=== PATIENT | male | born 1950 | race Caucasian/White ===

== ENCOUNTER 2018-01-03 12:20 | Observation (INO) | payer MEDICARE, SELFPAY ==
[2018-01-03] VITALS (49 sets, daily range): BP systolic 82–125; BP diastolic 52–72; PULSE 66–90; RESP 12–24; TEMP 36.8–38.2; O2SAT 94–99
[2018-01-03] MEDS: Aspirin 81 MG CHEW 324 MG CH (12:31)
[2018-01-03 12:46] LABS: Abs Immature Grans 0.02 k/cumm (0.0-0.09); Absolute Basophil Count 0.01 k/cumm (0.0-0.2); Absolute Lymphocyte Count 0.64 k/cumm (1.2-3.4); Absolute Monocyte Count 0.39 k/cumm (0.11-0.7); Absolute Neutrophil Count 5.73 k/cumm (1.2-6.7); Basophils % 0.1; HCT 51.5 % (40.0-50.0); HGB 17.6 g/dL (13.5-17.5); Immature Grans % 0.3; Lymphocytes % 9.4; Mean Corp. HGB Concentration 34.2 g/dL (32.0-36.0); Mean Corpuscular Hemoglobin 31.6 pg (27.0-33.0); Mean Corpuscular Volume 92.5 fL (80-95); Mean Platelet Volume 9.9 fL (8.0-11.0); Monocytes % 5.7; Neutrophils % 84.5; Platelet Count 280 x1000/uL (130-400); RBC 5.57 m/cumm (4.50-6.00); RBC Distribution Width 14.2 % (11.8-14.1); White Blood Cell Count 6.79 k/cumm (4.4-10.8)
[2018-01-03] MEDS: Normal Saline 1,000 ML 1000 ML IV (12:55)
[2018-01-03 13:03] LABS: PTT Activated 22.7 sec (21.0-31.4)
--- NOTE | 2018-01-03 13:04 | DI.RAD_ITS ---
SYMPTOM/DIAGNOSIS: SEVERE CHEST PAIN PORTABLE AP CHEST: Comparison is made with 02/11/14. Heart size and pulmonary vasculature are within normal limits. The lungs are clear. No effusions or pneumothoraces are identified. The bones are intact. IMPRESSION: No acute pulmonary process.
[2018-01-03 13:08] LABS: ALT 59 U/L (12-78); AST 24 U/L (15-37); Albumin 3.9 g/dL (3.4-5.0); Alkaline Phosphatase 58 U/L (46-116); Anion Gap 10.7 mmol/L (3-11); BUN 20 mg/dL (7-18); Bilirubin, Total 0.9 mg/dL (0.2-1.0); CO2 27.3 mmol/L (21.0-32.0); Calcium 9.4 mg/dL (8.5-10.1); Chloride 100 mmol/L (98-107); Glucose 107 mg/dL (70-100); Potassium 3.6 mmol/L (3.5-5.1); Sodium 138 mmol/L (136-145); Total Protein 7.8 g/dL (6.4-8.2)
[2018-01-03 13:09] LABS: Troponin I < 0.02 ng/mL (0.00-0.06)
[2018-01-03 13:20] LABS: D-Dimer 1010 ng/mlFEU (<500)
--- NOTE | 2018-01-03 14:12 | DI.CT_ITS ---
SYMPTOMS/DIAGNOSIS: SEVERE CHEST PRESSURE, 1000 D DIMER, NSTEMI VS PE CTA OF THE CHEST: CT angiography was performed with multi slice acquisition and multi planar and 3D reconstruction. CT scan of the chest was performed according to the pulmonary embolus protocol. There is no evidence of pulmonary embolus. The thoracic aorta is intact. No aneurysm or dissection is seen. The heart size is within normal limits. No significant pericardial effusion is seen. No findings to suggest right ventricular dysfunction are present. No significant mediastinal or hilar adenopathy is seen. No pleural effusion or pneumothorax is identified. Dependent atelectatic changes are seen in the lungs. No focal consolidating infiltrates are present. Mild central lobular emphysematous changes are seen in the lungs. Degenerative changes are seen in the spine. Prior vertebroplasty is seen. 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 IMPRESSION: No evidence of a pulmonary embolus, thoracic aortic dissection or aneurysm. The findings were discussed with the emergency department on the date of the examination.
[2018-01-03] MEDS: Omnipaque 350 MG/ML 100 ML BTL IJ (14:31)
--- NOTE | 2018-01-03 15:36 | W.ED.GENAD ---
Discharge Plan Disposition Patient Disposition: [facility] INPATIENT Condition: Stable Discharge Details Chief Complaint: Chest Pain Clinical Impression: Chest pain Reason For Visit: CHEST PAIN Admit Date/Time: 01/03/18 17:03 Admit Provider: Chepe Coello Attending Provider: Chepe Coello Primary Care Provider: Yash Hermosillo ED Provider: Dmitriy Maguire Discharge Data Discharge Date/Time-TO BE ENTERED AT DEPARTURE: 01/03/18 16:41 Medical Decision Making This is a pleasant 67-year-old male who presents for evaluation of chest pain. Patient states that 1 hour prior to arrival he was sitting watching TV when he developed sudden onset crushing-like chest pain around his chest. He recently got back from a long flight from [place] last night. The patient was given 3 aspirin by his , and then immediately brought to the ER for further evaluation. Cardiac risk factors are distant tobacco use, some family history of cardiac disease high cholesterol, past medical history is positive for osteopenia with Fosamax use. On arrival the patient was in moderate pain, with no radiation to his arm or neck. Initial EKG was performed and demonstrated no evidence of STEMI, however nitroglycerin was then given the patient had complete resolution of his symptomatology. Laboratory workup was performed and demonstrated relatively benign laboratory findings. No significant leukocytosis, left shift, bandemia, or electrolyte abnormality. Renal function is stable. Troponin was negative. D-dimer was ordered out of concern for PE with his recent flight and this was elevated at 1000. CT scan was performed and demonstrated IMPRESSION: No evidence of a pulmonary embolus, thoracic aortic dissection or aneurysm. X-ray showed no acute pathology or abnormality. With no evidence of STEMI on EKG, and a normal laboratory workup however a concerning history and an elevated heart score with a complete symptom resolution secondary to nitroglycerin administration I do feel this patient would benefit from serial troponins and inpatient admission for further cardiac evaluation. I discussed the case with the hospitalist, Dr. Coello he agreed with the assessment and plan. I have extensively reviewed the treatment plan with the patient. I have addressed all patient concerns at this time. I have also discussed the plan with the admitting physician and they agree with the current assessment and plan and have agreed to assume responsibility for the patient. All parties demonstrate verbal understanding and agreement with our assessment and plan at this time. EKG 12: 29 Rate 79, intervals normal, sinus rhythm, no significant ST elevations or depressions, questionable less than 1 mm elevation in V1. No reciprocal depressions. EKG 12: 37 Rate 57, intervals normal, sinus bradycardia, posterior EKG. No ST elevations or depressions in V4 V5 or V6. Questionable less than 1 mm elevation in V1 and V2. No reciprocal depressions.. No T wave inversions EKG 15: 36 rate 81, intervals normal, sinus rhythm, no ST elevations or depressions, no T wave inversions. No Q waves. HPI General Date/Time Provider Initiated Documentation: 01/03/18 12:30. HPI Narrative: This is a 67-year-old male with a past medical history of osteoporosis, osteopenia for which she takes Fosamax, questionable asthma, who is a former smoker, with a questionable history of high cholesterol and hypertension. He used to be on simvastatin but stopped secondary to myalgias. He presents today for evaluation of chest pain. The patient states that he was watching TV when he developed a crushing sternal chest pain that feels like a vice around his chest with no radiation down the arms or up the neck. He attempted to switch physicians, and took 3 aspirin at home but had no improvement relief of his symptoms. It occurred roughly 1 hour prior to his arrival. He came in immediately for evaluation. He has no previous cardiac history. He does admit to questionable family history of cardiac disease. He denies any cough, or arm pain. Patient does admit to a recent long flight coming back just yesterday evening. He denies any calf or leg pain or any history of blood clots. The patient denies any tearing sensation, or ripping sensation in his chest. He denies any trauma. No other complaints at this time. Previous surgical history is positive for polyps that were removed from the colon. He denies any IV or illicit drug use. Related Data Home Medications Medication Instructions Recorded Confirmed alendronate 70 mg tablet 70 mg PO QWEEK 12/05/17 01/03/18 cholecalciferol (vitamin D3) 1,000 1,000 unit PO BID cap 12/05/17 01/03/18 unit capsule famotidine-Ca carb-mag hydrox 10 1 tab PO BID 12/05/17 01/03/18 mg-800 mg-165 mg chewable tablet ibuprofen 200 mg capsule 200 mg PO DAILY PRN cap 12/05/17 01/03/18 multivitamin 1 tab PO DAILY 01/03/18 01/03/18 Allergies Allergy/AdvReac Type Severity Reaction Status Date / Time simvastatin AdvReac Unknown MYALGIAS Verified 01/03/18 16:50 General Stated Complaint: Chest Pain ANGIE: 2 Review of Systems Review of Systems All systems reviewed & are unremarkable except as noted in HPI and below PFSH Medical History Chest pain (Acute) Osteoporosis (Chronic 04/05/15) 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) Former smoker (Resolved 08/19/12) Compression fracture of body of thoracic vertebra (Acute 08/01/16) Social History household members: other details: 2 current occupational status: employed 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 pets and animals: Yes pets and animals: dog(s) frequency: 5-6 times per week duration: 30-45 minutes/day Smoking/Tobacco Use Status: Former Tobacco Use alcohol intake: current alcohol intake frequency: 3 or more drinks per day substance use type: does not use special carmelina needs: No Surgical History History of vertebroplasty (Acute) Hemorrhoidal Banding (~06/2009) Hernia repair (~07/2007) Exam Narrative Exam Narrative: 1.Const: Well-nourished, Well-developed, appearing stated age, appearing in acute distress, no severe diaphoresis 2.Eyes: PERRL, no conjunctival injection, and symmetrical lids. 3.ENT: Atraumatic external nose and ears. Moist MM. Neck: Symmetric, trachea midline, No thyromegaly. 4.CVS: +S1/S2, No murmurs or gallops. Peripheral pulses 2+ and equal in all extremities. Brisk capillary refill in all extremities. 5.RESP: Unlabored respiratory effort. Clear to auscultation bilaterally. No wheezes rales or rhonchi 6.GI: Soft, Nontender/Nondistended, No hepatosplenomegaly. No guarding or rebound. 7.MSK: Normocephalic/Atraumatic, Extremities w/o deformity or ttp No cyanosis or clubbing, Normal movement of all extremities 8.Skin: Warm, Dry. No rashes or lesions. 9.Neuro: circular knife cutter machine II-XII grossly intact. Sensation grossly intact, no focal neurologic deficits. 10.Psych: (AAO) x3. Appropriate mood and affect Course Vital Signs Pulse 70 01/03/18 12:45 Respiratory Rate 18 01/03/18 12:45 Blood Pressure 100/57 L 01/03/18 12:45 Pulse Oximetry 98 01/03/18 12:45 Pulse 70 01/03/18 12:45 Respiratory Rate 20 01/03/18 13:25 Respiratory Effort Labored 01/03/18 13:25 Respiratory Depth Normal 01/03/18 13:25 Respiratory Pattern Normal 01/03/18 13:25 Blood Pressure 100/57 L 01/03/18 12:45 Blood Pressure Position Sitting 01/03/18 12:45 Pulse Oximetry 98 01/03/18 12:45 Oxygen Delivery Method Room Air 01/03/18 12:45 Oxygen Flow Rate 0 01/03/18 12:45 Pain Level 8 01/03/18 13:25 Lab/Test Results Lab/Test Results: Laboratory Tests Range/Units 01/03/18 01/03/18 01/03/18 12:35 12:35 12:35 WBC (4.4-10.8) k/cumm 6.79 RBC (4.50-6.00) m/cumm 5.57 Hgb (13.5-17.5) g/dL 17.6 H Hct (40.0-50.0) % 51.5 H MCV (80-95) fL 92.5 MCH (27.0-33.0) pg 31.6 MCHC (32.0-36.0) g/dL 34.2 RDW (11.8-14.1) % 14.2 H Plt Count (130-400) x1000/uL 280 MPV (8.0-11.0) fL 9.9 Immature Gran % 0.3 Neutrophils % 84.5 Lymphocytes % 9.4 Monocytes % 5.7 Eosinophils % 0.0 Basophils % 0.1 Absolute Neutrophils (1.2-6.7) k/cumm 5.73 Absolute Lymphocytes (1.2-3.4) k/cumm 0.64 L Absolute Monocytes (0.11-0.7) k/cumm 0.39 Absolute Eosinophils (0.0-0.7) k/cumm 0.00 Absolute Basophils (0.0-0.2) k/cumm 0.01 PT (9.3-10.8) sec 10.0 INR (1.0-3.5) 1.0 APTT (21.0-31.4) sec 22.7 D-Dimer (<500) ng/mlFEU 1010 H Sodium (136-145) mmol/L 138 Potassium (3.5-5.1) mmol/L 3.6 Chloride (98-107) mmol/L 100 Carbon Dioxide (21.0-32.0) mmol/L 27.3 Anion Gap (3-11) mmol/L 10.7 BUN (7-18) mg/dL 20 H Creatinine (0.70-1.30) mg/dL 1.10 Estimated GFR/1.73 m2 (mL/min/1.73m2) >= 60.00 Glucose (70-100) mg/dL 107 H Calcium (8.5-10.1) mg/dL 9.4 Total Bilirubin (0.2-1.0) mg/dL 0.9 AST (15-37) U/L 24 ALT (12-78) U/L 59 Alkaline Phosphatase (46-116) U/L 58 Troponin I (0.00-0.06) ng/mL < 0.02 Total Protein (6.4-8.2) g/dL 7.8 Albumin (3.4-5.0) g/dL 3.9
[2018-01-03] MEDS: Pantoprazole 40 MG TABCR PO (16:09)
--- NOTE | 2018-01-03 16:39 | W.PM.HP.N ---
Date of service: 01/03/18 Time of Service: 16:41 Assessment and Plan (1) Chest pain: Current visit: Yes Status: Acute By his description of his chest pain it certainly sounds like it could be cardiac in origin. However, with his recent GI symptoms, a GI etiology/esophageal etiology is also possible. Limited risk factors for coronary artery disease including hyperlipidemia and past tobacco use, age and gender. Asymptomatic now after 1 sublingual nitroglycerin. From a diagnostic standpoint, monitor on telemetry, cycle troponins and follow for recurrent symptoms. From a therapeutic standpoint I am not starting any anticoagulation beyond prophylaxis for DVT, will hold off on further enema, as needed nitroglycerin to be available. If troponins rise, start anticoagulation, antiplatelet agents, beta-quinn at low dose given soft blood pressure and low resting heart rate. If all troponins flat, arrangements will be made for an outpatient stress test. (2) Osteoporosis: Current visit: Yes Status: Chronic Historically has not had any GI intolerance of alendronate. He takes Fosamax on Sundays, I have not reordered it yet. Likewise will have calcium on hold but will continue his vitamin D supplement. History of Present Illness Chief Complaint: Chest pain Narrative: 67-year-old former smoker (quit 4 years ago) here complaining of crushing bandlike chest pain around his chest, onset at rest midday today. Pain without associated shortness of breath diaphoresis lightheadedness or palpitations but did radiate up towards his jaw. Symptoms symptoms were present upon arrival in the emergency room, completely relieved after 1 sublingual nitroglycerin and have not recurred. 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 His initial troponin is below the level of detection. He recently flew from [place], [place]. On his return home, developed upper abdominal, lower chest bloating distention followed by explosive bouts of nonbloody non-mucousy loose stools. He arrived back in [place] around midnight, feeling fairly washed out but not having any chest pain. 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 He awoke twice during the night again having diarrhea bowel movements, no vomiting and did not have any chest pain at that time. When he got up this morning he had a small amount to eat, not much appetite. Was sitting quietly at home watching television with sudden onset of the crushing bandlike pain around his chest. He has never had symptoms like this in the past. He does moderate physical activity without unusual dyspnea or provoking any similar symptoms to those he has had in the past 2 days. There is no family history of first-degree relations but does have several second-degree relations who have had coronary artery disease in mid to late life. He had been treated with a statin in the past but developed adverse effects, possible GI upset? He has not had any recent lipids reassessed. He is being admitted now for further evaluation of his chest pain, to rule out acute coronary syndrome. Medications: Alendronate 70 mg every Saturday, cholecalciferol 1000 units twice daily, ibuprofen as needed, 2 Tums once daily (for calcium) Review of Systems Review of Systems No fevers or chills and no diaphoresis with episodes of chest pain. No dysphagia. No recurrent dyspepsia or abdominal pains. Regular bowel movements, non-melanotic. No cough or wheeze or dyspnea with usual activities. No dysuria or hematuria. Chronic mild right wrist pain. No ankle swelling. No claudication-like symptoms. No focal weakness. 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 pets and animals: Yes pets and animals: dog(s) frequency: 5-6 times per week duration: 30-45 minutes/day Smoking/Tobacco Use Status: Former Tobacco Use alcohol intake: current alcohol intake frequency: 3 or more drinks per day substance use type: does not use special carmelina needs: No Surgical History History of vertebroplasty (Acute) Hemorrhoidal Banding (~06/2009) Hernia repair (~07/2007) Meds Home Medications Medication Instructions Recorded Confirmed Type alendronate 70 mg tablet 70 mg PO QWEEK 12/05/17 01/03/18 History cholecalciferol (vitamin D3) 1,000 1,000 unit PO BID cap 12/05/17 01/03/18 History unit capsule famotidine-Ca carb-mag hydrox 10 1 tab PO BID 12/05/17 01/03/18 History mg-800 mg-165 mg chewable tablet ibuprofen 200 mg capsule 200 mg PO DAILY PRN cap 12/05/17 01/03/18 History multivitamin 1 tab PO DAILY 01/03/18 01/03/18 History Allergies Allergy/AdvReac Type Severity Reaction Status Date / Time simvastatin AdvReac Unknown MYALGIAS Verified 01/03/18 16:50 Exam Narrative Exam Narrative: Comfortable and in no distress at the present time. SaO2 on room air 95%. Blood pressure 101/55 pulse 66 regular respiratory rate 16 weight 74.8 kg. No facial asymmetry. Pupils equal and reactive, extraocular movements normal. Pharynx clear. No JVD or carotid bruits. Lungs with a few scattered crackles in the lower lung rolon, no rub no wheeze. Regular heart rhythm no murmur S3 or S4. Abdomen is not distended, soft, active bowel sounds. Mild discomfort to palpation in the right upper quadrant that does not reproduce his symptoms. No rebound. No guarding. Lower extremities with no calf edema or tenderness. Good pulses distally. Normal DTRs throughout. Sits up unassisted. Symmetric movement of all extremities. Oriented x4. CT angiography negative for PE or any intrathoracic pathology. EKG with chronic left anterior fascicular block, nonspecific lateral T wave changes. Results Labs : 01/03/18 12:35 01/03/18 12:35 Laboratory Results - last 24 hr 01/03/18 01/03/18 01/03/18 12:35 12:35 12:35 WBC 6.79 RBC 5.57 Hgb 17.6 H Hct 51.5 H MCV 92.5 MCH 31.6 MCHC 34.2 RDW 14.2 H Plt Count 280 MPV 9.9 Immature Gran % 0.3 Neutrophils % 84.5 Lymphocytes % 9.4 Monocytes % 5.7 Eosinophils % 0.0 Basophils % 0.1 Absolute Neutrophils 5.73 Absolute Lymphocytes 0.64 L Absolute Monocytes 0.39 Absolute Eosinophils 0.00 Absolute Basophils 0.01 PT 10.0 INR 1.0 APTT 22.7 D-Dimer 1010 H Sodium 138 Potassium 3.6 Chloride 100 Carbon Dioxide 27.3 Anion Gap 10.7 BUN 20 H Creatinine 1.10 Estimated GFR/1.73 m2 >= 60.00 Glucose 107 H Calcium 9.4 Total Bilirubin 0.9 AST 24 ALT 59 Alkaline Phosphatase 58 Troponin I < 0.02 Total Protein 7.8 Albumin 3.9
--- NOTE | 2018-01-03 16:45 | HPE_ITS ---
Date of service: 01/03/18 Time of Service: 16:41 Assessment and Plan (1) Chest pain: Current visit: Yes Status: Acute By his description of his chest pain it certainly sounds like it could be cardiac in origin. However, with his recent GI symptoms, a GI etiology/ esophageal etiology is also possible. Limited risk factors for coronary artery disease including hyperlipidemia and past tobacco use, age and gender. Asymptomatic now after 1 sublingual nitroglycerin. From a diagnostic standpoint , monitor on telemetry, cycle troponins and follow for recurrent symptoms. From a therapeutic standpoint I am not starting any anticoagulation beyond prophylaxis for DVT, will hold off on further enema, as needed nitroglycerin to be available. If troponins rise, start anticoagulation, antiplatelet agents, beta-quinn at low dose given soft blood pressure and low resting heart rate. If all troponins flat, arrangements will be made for an outpatient stress test. (2) Osteoporosis: Current visit: Yes Status: Chronic Historically has not had any GI intolerance of alendronate. He takes Fosamax on Sundays, I have not reordered it yet. Likewise will have calcium on hold but will continue his vitamin D supplement. History of Present Illness Chief Complaint: Chest pain Narrative: 67-year-old former smoker (quit 4 years ago) here complaining of crushing bandlike chest pain around his chest, onset at rest midday today. Pain without associated shortness of breath diaphoresis lightheadedness or palpitations but did radiate up towards his jaw. Symptoms symptoms were present upon arrival in the emergency room, completely relieved after 1 sublingual nitroglycerin and have not recurred. 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 His initial troponin is below the level of detection. He recently flew from [place], [place]. On his return home, developed upper abdominal, lower chest bloating distention followed by explosive bouts of nonbloody non-mucousy loose stools. He arrived back in [place] around midnight, feeling fairly washed out but not having any chest pain. 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 He awoke twice during the night again having diarrhea bowel movements, no vomiting and did not have any chest pain at that time. When he got up this morning he had a small amount to eat, not much appetite. Was sitting quietly at home watching television with sudden onset of the crushing bandlike pain around his chest. He has never had symptoms like this in the past. He does moderate physical activity without unusual dyspnea or provoking any similar symptoms to those he has had in the past 2 days. There is no family history of first-degree relations but does have several second-degree relations who have had coronary artery disease in mid to late life. He had been treated with a statin in the past but developed adverse effects, possible GI upset? He has not had any recent lipids reassessed. He is being admitted now for further evaluation of his chest pain, to rule out acute coronary syndrome. Medications: Alendronate 70 mg every Saturday, cholecalciferol 1000 units twice daily, ibuprofen as needed, 2 Tums once daily (for calcium) Review of Systems Review of Systems No fevers or chills and no diaphoresis with episodes of chest pain. No dysphagia. No recurrent dyspepsia or abdominal pains. Regular bowel movements , non-melanotic. No cough or wheeze or dyspnea with usual activities. No dysuria or hematuria. Chronic mild right wrist pain. No ankle swelling. No claudication-like symptoms. No focal weakness. 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 pets and animals: Yes pets and animals: dog(s) frequency: 5-6 times per week duration: 30-45 minutes/day Smoking/Tobacco Use Status: Former Tobacco Use alcohol intake: current alcohol intake frequency: 3 or more drinks per day substance use type: does not use special carmelina needs: No Surgical History History of vertebroplasty (Acute) Hemorrhoidal Banding (~06/2009) Hernia repair (~07/2007) Meds Home Medications Medication Instructions Recorded Confirmed Type alendronate 70 mg tablet 70 mg PO QWEEK 12/05/17 01/03/18 History cholecalciferol (vitamin D3) 1,000 1,000 unit PO BID cap 12/05/17 01/03/18 History unit capsule famotidine-Ca carb-mag hydrox 10 1 tab PO BID 12/05/17 01/03/18 History mg-800 mg-165 mg chewable tablet ibuprofen 200 mg capsule 200 mg PO DAILY PRN cap 12/05/17 01/03/18 History multivitamin 1 tab PO DAILY 01/03/18 01/03/18 History Allergies Allergy/AdvReac Type Severity Reaction Status Date / Time simvastatin AdvReac Unknown MYALGIAS Verified 01/03/18 16:50 Exam Narrative Exam Narrative: Comfortable and in no distress at the present time. SaO2 on room air 95%. Blood pressure 101/55 pulse 66 regular respiratory rate 16 weight 74.8 kg. No facial asymmetry. Pupils equal and reactive, extraocular movements normal. Pharynx clear. No JVD or carotid bruits. Lungs with a few scattered crackles in the lower lung rolon, no rub no wheeze. Regular heart rhythm no murmur S3 or S4. Abdomen is not distended, soft, active bowel sounds. Mild discomfort to palpation in the right upper quadrant that does not reproduce his symptoms. No rebound. No guarding. Lower extremities with no calf edema or tenderness. Good pulses distally. Normal DTRs throughout. Sits up unassisted. Symmetric movement of all extremities. Oriented x4. CT angiography negative for PE or any intrathoracic pathology. EKG with chronic left anterior fascicular block, nonspecific lateral T wave changes. Results Labs : 01/03/18 12:35 01/03/18 12:35 Laboratory Results - last 24 hr 01/03/18 01/03/18 01/03/18 12:35 12:35 12:35 WBC 6.79 RBC 5.57 Hgb 17.6 H Hct 51.5 H MCV 92.5 MCH 31.6 MCHC 34.2 RDW 14.2 H Plt Count 280 MPV 9.9 Immature Gran % 0.3 Neutrophils % 84.5 Lymphocytes % 9.4 Monocytes % 5.7 Eosinophils % 0.0 Basophils % 0.1 Absolute Neutrophils 5.73 Absolute Lymphocytes 0.64 L Absolute Monocytes 0.39 Absolute Eosinophils 0.00 Absolute Basophils 0.01 PT 10.0 INR 1.0 APTT 22.7 D-Dimer 1010 H Sodium 138 Potassium 3.6 Chloride 100 Carbon Dioxide 27.3 Anion Gap 10.7 BUN 20 H Creatinine 1.10 Estimated GFR/1.73 m2 >= 60.00 Glucose 107 H Calcium 9.4 Total Bilirubin 0.9 AST 24 ALT 59 Alkaline Phosphatase 58 Troponin I < 0.02 Total Protein 7.8 Albumin 3.9
[2018-01-03 16:54] LABS: Troponin I < 0.02 ng/mL (0.00-0.06)
[2018-01-03] MEDS: Enoxaparin 40 MG/0.4 ML SYR SC (18:46)
[2018-01-03] MEDS: Acetaminophen 500 MG TAB 1000 MG PO (19:57)
[2018-01-03 21:04] LABS: Troponin I < 0.02 ng/mL (0.00-0.06)
[2018-01-04 03:25] VITALS: BP 118/73; PULSE 75; RESP 18; TEMP 37.1; O2SAT 97
[2018-01-04 07:14] VITALS: PULSE 78
[2018-01-04 07:30] VITALS: BP 127/80; PULSE 69; RESP 18; TEMP 37.2; O2SAT 97
[2018-01-04 07:31] LABS: Cholesterol 222 mg/dL (50-200); HDL Cholesterol 65 mg/dL (40-60); LDL CHOLESTEROL 133 mg/dL (<100); Triglyceride 168 mg/dL (30-150)
[2018-01-04 07:35] VITALS: O2SAT 96
[2018-01-04] MEDS: Normal Saline Flush 10 ML SYR IVP (09:01)
[2018-01-04 09:44] LABS: Abs Immature Grans 0.01 k/cumm (0.0-0.09); Absolute Basophil Count 0.02 k/cumm (0.0-0.2); Absolute Eosinophil Count 0.04 k/cumm (0.0-0.7); Absolute Lymphocyte Count 1.02 k/cumm (1.2-3.4); Absolute Monocyte Count 0.31 k/cumm (0.11-0.7); Absolute Neutrophil Count 2.52 k/cumm (1.2-6.7); Basophils % 0.5; HCT 44.4 % (40.0-50.0); HGB 15.1 g/dL (13.5-17.5); Immature Grans % 0.3; Mean Corpuscular Hemoglobin 31.7 pg (27.0-33.0); Mean Corpuscular Volume 93.3 fL (80-95); Mean Platelet Volume 10.6 fL (8.0-11.0); Monocytes % 7.9; Neutrophils % 64.3; Platelet Count 201 x1000/uL (130-400); RBC 4.76 m/cumm (4.50-6.00); RBC Distribution Width 13.9 % (11.8-14.1); White Blood Cell Count 3.92 k/cumm (4.4-10.8)
[2018-01-04 09:54] LABS: Anion Gap 9.4 mmol/L (3-11); BUN 17 mg/dL (7-18); CO2 23.6 mmol/L (21.0-32.0); CREATININE 0.84 mg/dL (0.70-1.30); Calcium 8.3 mg/dL (8.5-10.1); Chloride 104 mmol/L (98-107); Glucose 99 mg/dL (70-100); Magnesium 1.9 mg/dL (1.8-2.4); Potassium 3.6 mmol/L (3.5-5.1); Sodium 137 mmol/L (136-145)
--- NOTE | 2018-01-04 12:07 | PHARADMIT ---
Admission Pharmacy Clinical Review CHEST PAIN (may be epigastric) Code Status Full Code Current Weight Wgt- 74.8 kg Renally Cleared and Narrow Therapeutic Index Meds CrCl~79 mL/min Meds-OK QTc Value / Action Taken NA BP Control, Fever BP- 127/80 Tmax-37.2C Electrolytes reviewed Na- 137 K+3.6 MMag-1.9 DVT Prophylaxis Lovenoc 40mg Opiate Usage / Scheduled Bowel Regimen Ordered Yes Yes Plt/SCr for Heparin / Enoxaparin Plts-201 SCr-0.84 INR for Warfarin na H/H stable, WBC/Bands H&H- 15.1/44.4 WBC-3.92 Antibiotic appropriateness NONE Cultures and Sensitivities NONE Surgical ABX d/c within 24 hr na DM control / Insulin Dosing BG-99 Heart Failure (Check EF%) ([place]'s, B-Block, Diuretics) NTG IV to PO Switch No Home Meds Reviewed Yes Home Meds Not Ordered Famotidine-OTC, Ibuprofen,M-vites, Alendronate Comments Troponins-neg
--- NOTE | 2018-01-04 14:02 | DSE_ITS ---
Date of service: 01/04/18 Time of Service: 13:52 DS: Diagnosis Discharge Diagnosis (1) Non-cardiac chest pain: Status: Acute (2) Gastroenteritis: Status: Acute (3) Osteoporosis: Status: Chronic (4) Dehydration: Status: Acute Discharge Plan Disposition Patient Disposition: HOME Condition: Stable Discharge Details Chief Complaint: Chest Pain Clinical Impression: Chest pain Reason For Visit: CHEST PAIN Admit Date/Time: 01/03/18 17:03 Admit Provider: Chepe Coello Attending Provider: Chepe Coello Primary Care Provider: Yash Hermosillo ED Provider: Dmitriy Maguire Hospital Course Hospital Course: Patient was placed in observation status after presenting to the [facility] ED with crushing chest pain, which was preceded by bouts of diarrhea during travel and accompanied by nausea in the ED. His Cardiac workup at [facility] consisted of 3 sets of negative troponins as well as 2 negative EKGs and Normal sinus rhythm on telemetry. His symptoms appear to be self limited and have already significantly improved. He will require outpatient stress testing and is instructed to return to the hospital with any worsening of his current symptoms. Home Meds and New Rx's Prescriptions: New alum-mag hydroxide-simeth [Mag-Al Plus] 200-200-20 mg/5 mL Suspension 30 ml PO Q2H PRN PRNQty: 0 RF: 0 Continue cholecalciferol (vitamin D3) 1,000 unit capsule 1,000 unit PO BID RF: 0 famotidine-Ca carb-mag hydrox 10-800-165 mg tablet,chewable 1 tab PO BID RF: 0 multivitamin Tablet 1 tab PO DAILY RF: 0 ibuprofen 200 mg capsule 200 mg PO DAILY PRN (Reason: fever or pain) Qty: 0 RF: 0 alendronate 70 mg tablet 70 mg PO QWEEK Qty: 0 RF: 0 Discharge Instructions Instructions: Dehydration (DC), Acute Nausea and Vomiting (DC) Additional Instructions: Return to the hospital with any worsening of your current symptoms, return of chest pain, any dizziness or shortness of breath. You will need to follow up for outpatient stress testing. Drink plenty of water for the next few days! Do not take your alendronate this week - skip this week's dose as it can agravate gastric or esophageal irritation. Do not take ibuprofen for the next 3-5 days. Activity:: Activity as Tolerated Equipment/Supplies:: No Equipment Needed Diet:: As Tolerated Discharge Orders Discharge Orders: Discharge Order (Routine); Ordered 01/04/18 Ordered By: Diann Nunez Other Ambulatory Orders: Nuclear Medicine Stress Test (Outpt) (ONCE) (1) Timeframe: 1 Week Facility: [facility] - Location: STRESS LAB Ordered By: Diann Nunez Exam Narrative Exam Narrative: General: Very pleasant male, laying comfortably in bed Neurological: Intact Psychiatric: Appropriate speech pattern and content Skin: Intact HEENT: Extraocular movements are intact, dry mucous membranes, no goiter or JVD Cardiovascular: Regularly regular rhythm, no murmur, rubs, or gallop Lungs: Clear to auscultation below Gastrointestinal: Soft, tender to medium to deep palpation, mildly distended Extremities: No edema, clubbing, or cyanosis in bilateral lower extremities; 2+ pedal pulses bilaterally DS: Data Vitals/I&O Vitals and I&O: Vital Signs Temperature 37.2 C 01/04/18 07:30 Temperature Source Temporal Artery Scan 01/04/18 07:30 Pulse 69 01/04/18 07:30 Pulse Rhythm Regular 01/04/18 07:30 Pulse 74 01/03/18 16:31 Respiratory Rate 18 01/04/18 07:30 Respiratory Effort 01/04/18 07:30 Respiratory Depth Normal 01/04/18 07:30 Respiratory Pattern Normal 01/04/18 07:30 Blood Pressure 127/80 01/04/18 07:30 Blood Pressure Mean 79 01/03/18 16:31 Blood Pressure Position Sitting 01/03/18 12:45 Pulse Oximetry 96 01/04/18 07:35 Oxygen Delivery Method Room Air 01/04/18 07:35 Oxygen Flow Rate 0 01/04/18 07:35 Pain Level 2 01/04/18 03:25 Comment 01/04/18 03:25 Intake & Output 01/03/18 01/04/18 01/04/18 23:59 11:59 23:59 Intake Total 1450 / 1450 1200 / 1200 Balance 1450 / 1450 1200 / 1200 Weight 74.843 kg Intake: IV 1000 / 1000 20 / 20 Oral 450 / 450 1180 / 1180 Other: Urine Color Yellow Urine Appearance Clear Urine Odor Normal Comment pt up to the bathroom to void multiple times void x 1, unmeasured, reported by patient. Stool Size Small Stool Characteristics Soft Liquid Liquid Brown Brown Voiding Methods Toilet Toilet Completed studies during hospitalization [Text1]: CTA Chest: No evidence of a pulmonary embolus, thoracic aortic dissection or aneurysm. CXR: No acute pulmonary process. Labs on day of discharge: Labs from last 24 hours 01/04/18 01/04/18 01/04/18 06:40 06:40 06:40 WBC 3.92 L D RBC 4.76 Hgb 15.1 D Hct 44.4 MCV 93.3 MCH 31.7 MCHC 34.0 RDW 13.9 Plt Count 201 MPV 10.6 Immature Gran % 0.3 Neutrophils % 64.3 Lymphocytes % 26.0 Monocytes % 7.9 Eosinophils % 1.0 Basophils % 0.5 Absolute Neutrophils 2.52 Absolute Lymphocytes 1.02 L Absolute Monocytes 0.31 Absolute Eosinophils 0.04 Absolute Basophils 0.02 Sodium 137 Potassium 3.6 Chloride 104 Carbon Dioxide 23.6 Anion Gap 9.4 BUN 17 Creatinine 0.84 Estimated GFR/1.73 m2 >= 60.00 Glucose 99 Calcium 8.3 L Magnesium Cancelled 1.9 Troponin I Triglycerides Total Cholesterol LDL Cholesterol Direct HDL Cholesterol 01/04/18 01/03/18 01/03/18 06:40 20:33 16:30 WBC RBC Hgb Hct MCV MCH MCHC RDW Plt Count MPV Immature Gran % Neutrophils % Lymphocytes % Monocytes % Eosinophils % Basophils % Absolute Neutrophils Absolute Lymphocytes Absolute Monocytes Absolute Eosinophils Absolute Basophils Sodium Potassium Chloride Carbon Dioxide Anion Gap BUN Creatinine Estimated GFR/1.73 m2 Glucose Calcium Magnesium Troponin I < 0.02 < 0.02 Triglycerides 168 H Total Cholesterol 222 H LDL Cholesterol Direct 133 H HDL Cholesterol 65 H
[2018-01-04 16:13] VITALS: PULSE 86
--- NOTE | 2018-01-04 17:03 | PDOC.CMIN ---
Care Management Initial Assess REASON FOR HOSPITALIZATION:: Chest Pain PAST MEDICAL HISTORY/PAST SURGICAL HISTORY:: Medical: Chest Pain, Osteoporosis, compression FX. Surgical: Vertebroplasty, hemorrhoidal banding, Hernia repair PREVIOUS FUNCTIONAL STATUS/SOCIAL/FAMILY SUPPORTS:: Normally very independent. Lives with his , Marta, at their home in [place]. CURRENT FUNCTIONAL STATUS:: Lying in bed. , Marta, is at his bedsie visiting. States he is feeling much better and hopes to be able to go home. ADVANCE DIRECTIVES:: None on file Has patient been provided with information about the portal?: No Did the patient sign up for the portal?: No CODE STATUS:: Full Code INSURANCE COVERAGE / FINANCIAL ISSUES:: Medicare. AARP CURRENT HOME/COMMUNITY SERVICES/EQUIPMENT:: None PRIMARY CARE PHYSICIAN:: Luis Miguel Kraus - Anson Hermosillo MD POTENTIAL DISCHARGE NEEDS:: None PATIENT/FAMILY EDUCATION NEEDS:: Discharge instructions ANTICIPATED BARRIERS TO DISCHARGE:: None TRANSPORTATION:: Marta will transport by car PLAN:: Return home. No services needed, Marta to transport by car.
--- NOTE | 2018-01-04 17:14 | PDOC.CMDIS ---
LACE Index Scoring Tool - Questions: Length of Stay (in days): 1 Acuity (Admit via E.D.?): Yes E.D. Visits: 1 - Answers: Total Score: 5 Risk of Readmission: Low Risk Care Management Discharge Reason for Hospitalization: Chest Pain Discharge Plan: Home and no service needed.
== END 2018-01-04 16:17 | disposition home or self-care (01) ==
LOC: ER 13:36 → MS 17:13
PROVIDERS: Admitting Provider Internal Medicine; Emergency Provider Student in an Organized Health Care Education/Training Program; PCP Emergency Medicine; Visit Provider Internal Medicine
DX: R07.89 Other chest pain (principal); K52.9 Noninfective gastroenteritis and colitis, unspecified; E86.0 Dehydration; Z87.891 Personal history of nicotine dependence
CPT/HCPCS: 36415; 71275; 80048; 80053; 80061; 83721; 93005; 96361; 96374; 99217; 99219; 99285; J1650; 71045; 83735; 84484; 85025; 85379; 85610; 85730; 87324; 93010; G0378; J3490

== ENCOUNTER 2018-01-07 10:13 | Outpatient (CLI) | payer MEDICARE, SELFPAY ==
[2018-01-07 11:42] LABS: ALT 71 U/L (12-78); AST 45 U/L (15-37); Albumin 3.7 g/dL (3.4-5.0); Alkaline Phosphatase 76 U/L (46-116); Bilirubin, Direct 0.14 mg/dL (0.00-0.20); Bilirubin, Total 0.6 mg/dL (0.2-1.0); C-Reactive Protein 0.26 mg/dL (0.0-0.3)
[2018-01-09 16:50] LABS: Anaplasma phagocytophilum Negative (Negative); Ehrlichia chaffeensis Negative (Negative); Ehrlichia ewingii/canis Negative (Negative); Ehrlichia muris eauclairensis Negative (Negative)
== END 2018-01-07 10:33 ==
PROVIDERS: PCP Emergency Medicine; Visit Provider Emergency Medicine
DX: M79.10 Myalgia, unspecified site (principal)
CPT/HCPCS: 36415; 80076; 86140; 87798

== ENCOUNTER 2018-01-11 07:30 | Outpatient (REF) | payer MEDICARE, SELFPAY ==
[2018-01-14 10:56] LABS: Campylobacter PCR SEE COMMENTS; Salmonella PCR SEE COMMENTS; Shiga Toxin PCR SEE COMMENTS; Shigella/Enteroinvasive Ecoli SEE COMMENTS
== END 2018-01-11 07:50 ==
LOC: LBN 07:30
PROVIDERS: PCP Emergency Medicine; Visit Provider Emergency Medicine
DX: K52.9 Noninfective gastroenteritis and colitis, unspecified (principal)
CPT/HCPCS: 87329; 87505; 87324

== ENCOUNTER 2020-12-02 03:04 | Outpatient (CLI) | payer MEDICARE, SELFPAY ==
[2020-12-02 08:58] LABS: Calcium 8.9 mg/dL (8.5-10.1)
[2020-12-02 17:58] LABS: PSA, Screening 1.7 ng/mL (0.0-4.5)
[2020-12-06 07:48] LABS: Testosterone, Total 734 ng/dL (240-950)
[2020-12-08 14:56] LABS: PTH-Related Peptide 0.5 pmol/L (< or = 4.2)
[2020-12-08 16:36] LABS: 1,25-Dihydroxyvitamin D 25 pg/mL (18-64)
== END 2020-12-02 03:05 | disposition home or self-care (01) ==
LOC: LBO 03:04
PROVIDERS: PCP Emergency Medicine; Visit Provider Emergency Medicine
DX: M81.0 Age-related osteoporosis without current pathological fracture (principal); N40.0 Benign prostatic hyperplasia without lower urinary tract symptoms; Z12.5 Encounter for screening for malignant neoplasm of prostate
CPT/HCPCS: 36415; 84153; 84403; 82310; 82397; 82652

== ENCOUNTER 2020-12-15 02:48 | Outpatient (CLI) | payer MEDICARE, SELFPAY ==
[2020-12-15 12:57] LABS: Calculated LDL 227 mg/dL (<100); Cholesterol 333 mg/dL (<200); HDL Cholesterol 67 mg/dL (40-60); Triglyceride 199 mg/dL (<150)
== END 2020-12-15 02:49 | disposition home or self-care (01) ==
LOC: LOS 02:48
PROVIDERS: PCP Emergency Medicine; Visit Provider Emergency Medicine
DX: E78.00 Pure hypercholesterolemia, unspecified (principal)
CPT/HCPCS: 36415; 80061

== ENCOUNTER 2020-12-30 02:36 | Outpatient (CLI) | payer MEDICARE, SELFPAY ==
--- NOTE | 2020-12-30 06:45 | DI.DEXA_ITS ---
Exam(s) XR DEXA BONE DENSITY W/WO BARB EXAM: XR DEXA BONE DENSITY W/WO BARB CLINICAL HISTORY: osteoporosis,COMPRESSION FX,M81.0,N40.0,S22.000A TECHNIQUE: COMPARISON: CT CTA THORAX/ABDOMEN/PELVIS from 02/11/2014 CR XR PORTABLE CHEST AP from 01/03/2018 CR XR PORTABLE CHEST AP from 01/03/2018 FINDINGS: Lateral Spine Image: Old compression fracture deformities and vertebroplasty is seen at T5, T6 and T7 . Left hip: Total T-Score: 0.2. This compares with -0.2 on the prior examination. Total Z-Score: 0.8 T- and Z-scores: Within normal limits. Lumbar Spine: Total T-Score: -1.8. This compares to -2.1 on the prior examination. Total Z-Score: -0.9. T- and Z-scores: Findings consistent with osteopenia. IMPRESSION: Osteopenia in the lumbar spine.
== END 2020-12-30 02:56 ==
PROVIDERS: PCP Emergency Medicine; Visit Provider Emergency Medicine
DX: M85.88 Other specified disorders of bone density and structure, other site (principal); N40.0 Benign prostatic hyperplasia without lower urinary tract symptoms
CPT/HCPCS: 77080

== ENCOUNTER → 2021-07-20 08:12 | Outpatient (BNVA) | payer MEDICARE, SELFPAY | PROVIDERS: PCP Family Medicine; Referring Provider Emergency Medicine; Visit Provider Physical Therapy Assistant | DX: Z12.11 Encounter for screening for malignant neoplasm of colon (principal); Z86.010 Personal history of colon polyps ==

== ENCOUNTER 2021-07-24 13:02 | Outpatient (CLI) | payer MEDICARE, SELFPAY ==
[2021-07-24 12:48] LABS: Calculated LDL 126 mg/dL (<100); Cholesterol 228 mg/dL (<200); HDL Cholesterol 86 mg/dL (40-60); Triglyceride 83 mg/dL (<150)
[2021-07-24 12:51] LABS: ALT 55 U/L (16-63); AST 49 U/L (15-37); Albumin 3.8 g/dL (3.4-5.0); Alkaline Phosphatase 55 U/L (46-116); Anion Gap 8.8 mmol/L (3-11); BUN 14 mg/dL (7-18); Bilirubin, Total 0.8 mg/dL (0.2-1.0); CO2 26.2 mmol/L (21.0-32.0); Calcium 8.7 mg/dL (8.5-10.1); Chloride 104 mmol/L (98-107); Glucose 108 mg/dL (74-106); Potassium 4.3 mmol/L (3.5-5.1); Sodium 139 mmol/L (136-145); Total Protein 6.8 g/dL (6.4-8.2)
[2021-07-26 11:40] LABS: Apolipoprotein B, S 106 mg/dL; Lipoprotein (a) <7 nmol/L (<75)
== END 2021-07-24 13:03 | disposition home or self-care (01) ==
LOC: LBO 13:06
PROVIDERS: Emergency Medicine; PCP Family Medicine; Visit Provider Internal Medicine
DX: E78.2 Mixed hyperlipidemia (principal)
CPT/HCPCS: 36415; 80053; 80061; 82172; 83695; 84443

== ENCOUNTER 2021-07-31 07:47 | Day surgery (SDC) | payer MEDICARE, SELFPAY ==
--- NOTE | 2021-07-30 18:31 | ANES.PREOP_ITS ---
General Info Date of Service Date Performed: 07/31/21 Height: 5 ft 6.5 in Weight: 78.925 kg Body Mass Index (BMI): 27.6 Surgical Procedure: Operation Date: 07/31/21 09:05 Proposed Procedure Side Surgeon p Colonoscopy Lucero Faye MD Meds Allergies and Home Medications Allergies Allergy/AdvReac Type Severity Reaction Status Date / Time simvastatin AdvReac Unknown MYALGIAS Verified 07/31/21 08:09 Home Medication Medication Instructions Recorded cholecalciferol (vitamin D3) 25 1,000 unit PO BID cap 12/05/17 mcg (1,000 unit) capsule multivitamin 1 tab PO DAILY 01/03/18 ibuprofen 200 mg capsule 200 mg PO DAILY PRN #0 cap 01/04/18 triamcinolone acetonide 0.5 % 1 applic TP BID #454 gm 08/12/20 topical cream aspirin 81 mg tablet,delayed 81 mg PO DAILY 11/24/20 release azelastine 137 mcg (0.1 %) nasal 1 spray INTRANASAL BID #30 ml 05/25/21 spray aerosol alendronate 70 mg tablet 70 mg PO QWEEK #14 tab 06/12/21 rosuvastatin 10 mg tablet (Crestor) 10 mg PO DAILY #90 tab 06/12/21 bisacodyl 5 mg tablet,delayed 5 mg PO ONCE #4 tab 07/20/21 release (Dulcolax (bisacodyl)) calcium carbonate 200 mg calcium 200 mg PO DAILY tab 07/20/21 (500 mg) chewable tablet (Tums) polyethylene glycol 3350 17 17 g PO ONCE #238 g 07/20/21 gram/dose oral powder Current Visit Medications: Current Medications Generic Name Dose Route Start Last Admin Trade Name Freq PRN Reason Stop Dose Admin Ringer's Solution 1,000 mls @ 80 mls/hr 07/31/21 06:00 IV 08/27/21 23:59 INFUSION IRVING IV Miscellaneous Supplies 1 each 07/31/21 06:00 Iv Access IV 08/27/21 23:59 DIRECTED IRVING Sodium Chloride 0 ml 07/31/21 06:00 Normal Saline Flush 10 Ml Syr IV 08/27/21 23:59 PRN PRN Sodium Chloride 0 ml 07/31/21 06:00 Normal Saline 10 Ml Vial IJ 08/27/21 23:59 DIRECTED PRN Sterile Water 0 ml 07/31/21 06:00 Water,Injection,Sterile 10 Ml Vial IJ 08/27/21 23:59 DIRECTED PRN [facility] Active Problems Active Problems: Problem Status Onset Code Polyp of colon, villous adenoma 07/18/17 D37.4 Tubular adenoma of colon D12.6 History of vertebroplasty Z98.890 Gastroenteritis K52.9 Non-cardiac chest pain R07.89 Medical History Medical History Benign paroxysmal positional vertigo (11/20/16) BPH (benign prostatic hyperplasia) Compression fracture (03/30/14) spontaneous T5-7, likely osteoporosis Compression fracture of body of thoracic vertebra (08/01/16) t5-7. 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 SANTANA @ [facility] Hernia repair (~07/2007) History of colonoscopy (~06/2017) History of hemorrhoidectomy Status post hernia repair Tobacco Smoking/Tobacco Use Status: Former Tobacco Use Alcohol Alcohol Intake: current Alcohol intake frequency: 3 or more drinks per day Alcohol type: beer and wine Substance Use Substance use: Socially Substance use type: marijuana Vital Signs and Lab Results Lab Results Blood Type / Crossmatch: No Data to Display Complete Blood Count: No Data to Display Complete Metabolic Panel: Sodium Level 139 mmol/L (136-145) 07/24/21 11:30 07/24/21 Potassium Level 4.3 mmol/L (3.5-5.1) 07/24/21 11:30 07/24/21 Chloride Level 104 mmol/L (98-107) 07/24/21 11:30 07/24/21 Carbon Dioxide Level 26.2 mmol/L (21.0-32.0) 07/24/21 11:30 07/24/21 Blood Urea Nitrogen 14 mg/dL (7-18) 07/24/21 11:30 07/24/21 Creatinine 1.0 mg/dL (0.70-1.30) 07/24/21 11:30 07/24/21 Estimated GFR/1.73 m2 >= 60.00 (mL/min/1.73m2) 07/24/21 11:30 07/24/21 Calcium Level 8.7 mg/dL (8.5-10.1) 07/24/21 11:07/24/21 Albumin 3.8 g/dL (3.4-5.0) 07/24/21 11:07/24/21 Glucose Level 108 mg/dL (74-106) H 07/24/21 11:30 07/24/21 Liver Function Panel: Alanine Aminotransferase (ALT/SGPT) 55 U/L (16-63) 07/24/21 11:30 07/24/21 Aspartate Amino Transf (AST/SGOT) 49 U/L (15-37) H 07/24/21 11:30 07/24/21 Coagulation Panel: No Data to Display Cardiac Panel: No Data to Display Arterial Blood Gas: No Data to Display Venous Blood Gas: No Data to Display Pancreas Panel: No Data to Display Thyroid Panel: Thyroid Stimulating Hormone (TSH) 1.40 uIU/mL (0.36-3.74) 07/24/21 11:30 07/24/21 Infectious Disease: No Data to Display Blood Cultures: No Data to Display Toxicology Panel: No Data to Display Anesthesia Assessment and Plan Anesthesia History Personal History: No History of Anesthesia Complications Family History: No Family History of Anesthesia Complications Exercise Tolerance Exercise Tolerance: Metabolic Equivalents>4 Pertinent Negatives Pertinent Negatives: No Symptoms of GERD, No Major Cardiovascular Symptoms or Complaints, No Major Pulmonary Symptoms or Complaints and No History of CVA/TIA Cardiac & Pulmonary Exam Cardiac Exam: Normal S1/S2 Heart Sounds Pulmonary Exam: Clear Bilateral Breath Sounds Cardiac and Pulmonary Comment:: Denied asthma Implantable Cardiac Device Does patient have a Pacemaker or an ICD?: No Airway Exam Known Difficult Airway: No Mallampati Class: 3 Mouth Opening: Normal (> 3cm) Thyromental Distance: Greater than 3 cm Neck Range of Motion: Full ROM Neck Circumference: Normal Teeth Condition: Normal Dentition ASA Classification ASA Score: ASA 2 Emergency Case?: No NPO Status NPO Status: NPO Clears >2 hours, Solids >8 hours Anesthesia Plan Resuscitation Status: Full Code Anesthesia Technique: General Anesthesia Airway Planned: Natural Airway Monitors Used: Standard Monitors Preoperative Comments:: 71 yo male with history of tubulovillous and tubular adenomatous polyps for colonoscopy. Sig PMHx: former smoker, cold induced asthma, occ cannabis, daily EtOH.
--- NOTE | 2021-07-31 06:43 | W.COLOREPORT ---
Colonoscopy Report Date of procedure: 07/31/21 Pre-op diagnosis general: Colon Cancer Screening, Hx of colon polyps Post-op diagnosis procedure note: other (polyps and diverticulosis) Procedure: Colonoscopy with polypectomy Surgeon: Lucero Faye Anesthesia Type: General:No Airway Estimated blood loss (mL): 3 Pathology: other (ascending polyp, descending polyp, diverticulosis) Complications: None Disposition: same day Indications: 71 y/o male with history of BPH, hyperlipidemia and Vertigo presents for colonoscopy screening pre-op. His last screening was in 2018 at [facility], which was remarkable for tubulovillious and a tubular adenomatous polyp. He denies a family history of colon cancer. He denies any changes in bowel habits including bloody or black tarry stools, abdominal pain, diarrhea or constipation. He denies constitutional symptoms. Prep: Miralax/Dulcolax Procedure Start Time: 09:14 Procedure End Time: 09:42 Retraction Time: 14 minutes Findings: polyps diverticulosis Procedure Description: After informed consent was obtained the patient was taken to the procedure room and placed in a left decubitous position. Monitors were applied and a time out was done. The patients name, date of , procedure, allergies to medications and metal in their body was reviewed. The patient was then sedated. Once sedated and comfortable a rectal exam was done. External exam was normal. Internal exam revealed a normal sphincter tone and no palpable masses. The prostate felt smooth. The scope was then introduced and retro-flexed. No internal hemorrhoids, polyps or masses were identified on retro-flexion. The scope was then advanced to the cecum without difficulty. The ileocecal vlave and appendiceal orifice were identified. The prep was good. The scope was then slowly retracted over 14 minutes back into the rectum. Polyps were removed with cold forceps in the ascending colon, descending colon and rectum x2. There was mild sigmoid diverticulosis noted. The scope was removed and the patient was woken up and taken back to Same day surgery in stable condition. The patient tolerated the procedure well and there were no immediate complications. Follow up: The patient should follow up in 5 years unless they develop changes in bowel habits or other new gastrointestinal complaints.
--- NOTE | 2021-07-31 06:45 | W.PM.DSUDISC ---
Discharge Plan Disposition Patient Disposition: HOME Condition: Good Discharge Details Reason For Visit: Colonoscopy Attending Provider: Lucero Faye Primary Care Provider: Celia Saha Home Meds and New Rx's Prescriptions: Continued cholecalciferol (vitamin D3) 1,000 unit capsule 1,000 unit PO BID 0RF calcium carbonate [Tums] 200 mg calcium (500 mg) tablet,chewable 200 mg PO DAILY 0RF aspirin 81 mg tablet,delayed release (DR/EC) 81 mg PO DAILY 0RF azelastine 137 mcg (0.1 %) aerosol,spray 1 spray intranasal BID Qty: 30 2RF Label Comments: Hasnt used since Covid after [place] Rx Instructions: administer into each nostril triamcinolone acetonide 0.5 % cream 1 applic TP BID Qty: 454 2RF alendronate 70 mg tablet 70 mg PO QWEEK Qty: 14 4RF rosuvastatin [Crestor] 10 mg tablet 10 mg PO DAILY Qty: 90 3RF multivitamin Tablet 1 tab PO DAILY 0RF ibuprofen 200 mg capsule 200 mg PO DAILY PRN (Reason: fever or pain) Qty: 0 0RF Rx Instructions: abstain for 5-7 days Discontinued bisacodyl [Dulcolax (bisacodyl)] 5 mg tablet,delayed release (DR/EC) 5 mg PO ONCE Qty: 4 0RF Rx Instructions: Take according to provider's instructions for colonoscopy prep. polyethylene glycol 3350 17 gram/dose powder 17 g PO ONCE Qty: 238 0RF Rx Instructions: To be taken as directed by prescriber's office for colonoscopy prep. Discharge Instructions Instructions: Colorectal Polyps (DC), Diverticulosis (DC) Additional Instructions: Findings: polyps and diverticulosis Follow up: 5 years Please call if you develop: fevers >101.5 Nausea or Vomiting Abdominal pain that is not transient Rectal bleeding that is more then a tbsp A hard abdomen and inability to pass gas DAY SURGERY UNIT POST ENDOSCOPY INSTRUCTIONS Instructions for everyone who is given Anesthesia: For your safety, please do the following for the next 24 Hours: a. Do not drive or operate dangerous equipment b. Do not drink alcohol beverages or use any recreational drugs for the first 24 hours or while taking pain medications. The medications in your body may have a reaction that can be dangerous. c. Do not make any important decisions or sign any important papers 1. Generally there are no restrictions on your activity after a day or so has gone by, but you may feel a bit fatigued for a few days. 2. After you arrive home you may have a light meal and return to a normal diet as you can tolerate it without feeling sick to your stomach. 3. After surgery, you may feel pain or discomfort. This should be only transient, but if it persists please contact your doctor. 4. If there are any questions regarding the findings of your procedure, please feel free to contact your doctor. 6. If you are unable to contact your doctor with a problem, contact the hospital at [phone]. 7. Continue all your regular medications unless directed otherwise. I understand the above instructions and have no questions. Signature of Patient or Responsible Adult Escort Date/Time Name of Responsible Adult Escort Signature of Nurse Date/Time Activity:: Activity as Tolerated Diet:: high fiber diet Discharge Orders Discharge Orders: Discharge Order (Routine); Ordered 07/31/21 Ordered By: Lucero Faye
[2021-07-31 08:01] VITALS: BP 144/93; PULSE 97; RESP 16; TEMP 36.4; O2SAT 99
[2021-07-31] MEDS: Lactated Ringers 1,000 ML 80 ML IV (08:25)
[2021-07-31 08:48] VITALS: BMI 27.6
--- NOTE | 2021-07-31 09:30 | BOWEL_PTH ---
PATIENT: Hakeem Reyes LOC: [facility] U#:[id number] AGE/SX: 71/M ROOM: RE07/31/[address]: Lucero Faye MD : 1950 BED: DIS: 07/31/2021 SPEC #: [id number] RECD: 07/31/21 12:46 STATUS: RALF REQ #: [id number] VEDA: 07/31/21 09:[address]: Lucero Faey DEPT: Surgical Specimen RECD BY: Zenaida Verdugo ENTERED: 07/31/21 12:47 SP TYPE: Bowel OTHR DR: Celia Saha MD, DC Tissues: 1 - BIOPSY BOWEL 2 - BIOPSY BOWEL 3 - BIOPSY BOWEL Procedures: GROSS AND MICRO LEVEL 4 Comments: [id number]
[2021-07-31 09:45] VITALS: BP 121/78; PULSE 85; RESP 16; TEMP 36; O2SAT 95
--- NOTE | 2021-07-31 09:58 | W.ANESPOSTOP ---
Postoperative Evaluation Date, Time and Location Date Performed: 07/31/21 Time Performed: 09:58 Patient Location: Day Surgery Unit Vital Signs Most Recent Imported Vital Signs: Most Recent Vital Signs Temp Pulse Resp BP Pulse Ox 36 C L 85 16 121/78 95 07/31/21 09:45 07/31/21 09:45 07/31/21 09:45 07/31/21 09:45 07/31/21 09:45 Pain Score Most Recent Pain Score: Most Recent Pain Score Pain Level 0 07/31/21 08:01 Assessment Mental Status: Awake (Alert & Oriented to Patient Baseline) Airway and Respiratory Function: Patent airway with normal (patient baseline) respiratory exam Cardiovascular Function: Hemodynamically Stable Hydration Status: Adequately Hydrated Nausea & Vomiting: No Nausea or Vomiting Pain: Pt. Denies Any Pain Peripheral Nerve Block: Patient did not receive a nerve block
[2021-07-31 10:15] VITALS: BP 131/85; PULSE 89; RESP 18; TEMP 36; O2SAT 97
== END 2021-07-31 11:25 | disposition home or self-care (01) ==
LOC: SUR 07:47
PROVIDERS: PCP Family Medicine; Visit Provider Surgery
PROC: 0DJD8ZZ Inspection of Lower Intestinal Tract, Via Natural or Artificial Opening Endoscopic (ICD-10-PCS; CPT 45378; principal; 2021-07-31 09:00)
DX: Z12.11 Encounter for screening for malignant neoplasm of colon (principal); K63.5 Polyp of colon; Z86.010 Personal history of colon polyps; E78.5 Hyperlipidemia, unspecified
CPT/HCPCS: 45380; 88305

== ENCOUNTER 2022-01-03 02:58 | Outpatient (CLI) | payer MEDICARE, SELFPAY ==
[2022-01-03 10:57] LABS: ALT 69 U/L (16-63); AST 36 U/L (15-37); Alkaline Phosphatase 49 U/L (46-116); Anion Gap 8.2 mmol/L (3-11); BUN 14 mg/dL (7-18); Bilirubin, Total 0.5 mg/dL (0.2-1.0); CO2 26.8 mmol/L (21.0-32.0); CREATININE 1.1 mg/dL (0.70-1.30); Calcium 9.5 mg/dL (8.5-10.1); Chloride 103 mmol/L (98-107); Estimated GFR 72.67 (mL/min/1.73m2); Glucose 91 mg/dL (74-106); Potassium 4.3 mmol/L (3.5-5.1); Sodium 138 mmol/L (136-145); TSH 1.69 uIU/mL (0.36-3.74); Total Protein 7.6 g/dL (6.4-8.2)
[2022-01-03 12:57] LABS: LDL CHOLESTEROL 103 mg/dL (<100)
[2022-01-05 10:39] LABS: Apolipoprotein B, S 91 mg/dL
[2022-01-05 10:49] LABS: Lipoprotein (a) <7 nmol/L (<75)
== END 2022-01-03 02:59 | disposition home or self-care (01) ==
PROVIDERS: PCP Family Medicine; Visit Provider Internal Medicine
DX: E78.2 Mixed hyperlipidemia (principal)
CPT/HCPCS: 80053; 82172; 83695; 83721; 84443

== ENCOUNTER → 2022-03-12 13:46 | Outpatient (BNVA) | payer MEDICARE, SELFPAY | PROVIDERS: PCP Family Medicine; Referring Provider Family Medicine; Visit Provider Internal Medicine Cardiovascular Disease | DX: E78.00 Pure hypercholesterolemia, unspecified (principal) | CPT/HCPCS: 93005; 99202; 99214 ==

== ENCOUNTER 2022-03-12 13:48 | Outpatient (CLI) | payer MEDICARE, SELFPAY ==
--- NOTE | 2022-03-12 13:45 | RT.EKG_ITS ---
APPROVED REPORT Exam: Resting ECG Reason for Exam: evaluation Patient Location: O HR:95 bpm ECG Measurements Heart Rate 95 AXIS TX 154 P 47 QRSd 87 QRS -56 QT 335 T 86 QTc 421 Conclusion Sinus rhythm...normal P axis, V-rate 50- 99 Probable left atrial enlargement...P >50mS, <-0.10mV V1 Left anterior fascicular block...axis(240,-40), init forces inf Abnormal R-wave progression, late transition...QRS area<0 in V5/V6 Probable left ventricular hypertrophy...multiple LVH criteria LVH
== END 2022-03-12 13:49 | disposition home or self-care (01) ==
LOC: DI.CARD 13:50
PROVIDERS: PCP Family Medicine; Visit Provider Internal Medicine Cardiovascular Disease
DX: E78.00 Pure hypercholesterolemia, unspecified (principal); R94.31 Abnormal electrocardiogram [ECG] [EKG]; I44.4 Left anterior fascicular block
CPT/HCPCS: 93010

== ENCOUNTER 2022-07-06 03:25 | Outpatient (CLI) | payer MEDICARE, SELFPAY ==
[2022-07-06 09:32] LABS: Calculated LDL 63 mg/dL (<100); Cholesterol 172 mg/dL (<200); HDL Cholesterol 95 mg/dL (40-60); Triglyceride 73 mg/dL (<150)
== END 2022-07-06 03:26 | disposition home or self-care (01) ==
LOC: LBO 03:26
PROVIDERS: PCP Family Medicine; Visit Provider Internal Medicine Cardiovascular Disease
DX: E78.00 Pure hypercholesterolemia, unspecified (principal)
CPT/HCPCS: 36415; 80061

== ENCOUNTER → 2022-07-13 13:21 | Outpatient (BNVA) | payer MEDICARE, SELFPAY | PROVIDERS: PCP Family Medicine; Referring Provider Family Medicine; Visit Provider Internal Medicine Cardiovascular Disease | DX: E78.00 Pure hypercholesterolemia, unspecified (principal) | CPT/HCPCS: 99213 ==

== ENCOUNTER 2023-03-01 01:41 | Outpatient (CLI) | payer MEDICARE, SELFPAY ==
[2023-03-01 10:07] LABS: ALT 32 U/L (16-63); AST 21 U/L (15-37); Albumin 3.6 g/dL (3.4-5.0); Alkaline Phosphatase 52 U/L (46-116); Anion Gap 7.1 mmol/L (3-11); BUN 15 mg/dL (7-18); Bilirubin, Total 0.6 mg/dL (0.2-1.0); CO2 29.9 mmol/L (21.0-32.0); Calcium 9.2 mg/dL (8.5-10.1); Calculated LDL 103 mg/dL (<100); Chloride 102 mmol/L (98-107); Cholesterol 208 mg/dL (<200); Estimated GFR 80.47 (mL/min/1.73m2); Glucose 108 mg/dL (74-106); HDL Cholesterol 95 mg/dL (40-60); Potassium 4.2 mmol/L (3.5-5.1); Sodium 139 mmol/L (136-145); Total Protein 7.4 g/dL (6.4-8.2); Triglyceride 50 mg/dL (<150)
== END 2023-03-01 01:42 | disposition home or self-care (01) ==
LOC: LBO 01:42
PROVIDERS: PCP Family Medicine; Visit Provider Family Medicine
DX: I10 Essential (primary) hypertension (principal)
CPT/HCPCS: 36415; 80053; 80061

== ENCOUNTER → 2023-03-18 01:33 | Outpatient (CLI) | payer MEDICARE, SELFPAY ==
--- NOTE | 2023-03-18 14:10 | DI.CTLCSR_ITS ---
Exam(s) CT CHEST LUNG CANCER SCREEN EXAM: CT CHEST LUNG CANCER SCREEN CLINICAL HISTORY: Screening for lung cancer,former smoker,z87.891 TECHNIQUE: Imaging Protocol: Axial computed tomography images with coronal and sagittal reformatted images were created and reviewed COMPARISON: CT CTA THORAX/ABDOMEN/PELVIS from 02/11/2014 FINDINGS: Tracheobronchial tree: Patent where visualized. Pulmonary parenchyma: No consolidation or dominant measurable mass. No architectural distortion. Calc ified granuloma are present. Lung Nodules: None. Mediastinum and Flory: No dominant adenopathy or fluid collection. The esophagus is unremarkable. Thyroid gland: Unremarkable. Lymph nodes: Unremarkable. Pleura: No effusion or pneumothorax. Heart: The heart is not dilated. Coronary artery calcifications are present. No pericardial effusion . Aorta: Thoracic aorta non-dilated.Atherosclerosis. Upper abdomen: Unremarkable. Soft Tissues: Unremarkable. Bones: Within normal limits. Vertebral plasty is again seen in 3 consecutive mid thoracic vertebral b odies. IMPRESSION: No pulmonary nodules. Lung RADS Cat 1 - Negative: No nodules and definitely benign nodules Lung-RADS 1.0 CATEGORIES: Category 0 - Prior chest CT exam(s) being located for comparison. Category 1 - Annual screening in 12 months. No nodules or definitely benign nodules. Category 2 - Annual screening in 12 months. Benign appearance. Nodules with low likelihood of becomin g active cancer. Category 3 - 6-month follow-up. Probably benign. Short-term follow-up suggested. Nodules with low lik elihood of becoming active cancer. Category 4A - 3-month follow-up and CT/PET if >8 mm in size. Suspicious finding. Findings which requi re additional testing. Category 4B - Findings which require additional testing and tissue sampling. Suspicious finding. Category 4X - Category 3 or 4 nodules with additional features or imaging findings that increases the suspicion of malignancy. Modifier S- Potentially clinically significant finding. (Non lung cancer) RADIATION DOSE DELIVERED: Total DLP Total DLP DATA REPOSITORY: All CT scans at this facility are submitted to the National Radiology Data Registry (NRDR) Dose Index Registry (DIR) with the [employer] (ACR). RADIATION OPTIMIZATION: All CT scans at this facility use at least one of these dose optimization te chniques: automated exposure control; mA and/or kV adjustment per patient size (includes targeted exa ms where dose is matched to clinical indication); or iterative reconstruction.
== END ==
PROVIDERS: PCP Family Medicine; Visit Provider Family Medicine
DX: Z87.891 Personal history of nicotine dependence; Z12.2 Encounter for screening for malignant neoplasm of respiratory organs
CPT/HCPCS: 71271

== ENCOUNTER → 2023-10-08 14:59 | Outpatient (CLI) | payer MEDICARE, SELFPAY ==
--- NOTE | 2023-10-08 11:45 | DI.RAD_ITS ---
Exam(s) XR STERNUM EXAM: XR STERNUM CLINICAL HISTORY: R07.89 other chest pain; strenal pop during headstand. TECHNIQUE: 2D digital imaging was performed. COMPARISON: CT CT CHEST LUNG CANCER SCREEN from 03/18/2023 FINDINGS: BONES: Fracture upper sternum with a few millimeters of anterior displacement. No bony destructive l esion is seen. JOINTS: No dislocation present. SOFT TISSUE: Normal. IMPRESSION: Mildly displaced fracture of the upper sternum. DATA REPOSITORY: RADIATION DOSE DELIVERED:
== END ==
PROVIDERS: PCP Family Medicine; Visit Provider Family Medicine
DX: R07.89 Other chest pain (principal); S22.20XA Unspecified fracture of sternum, initial encounter for closed fracture
CPT/HCPCS: 71120

== ENCOUNTER 2023-10-08 16:33 | Emergency (ER) | payer MEDICARE, SELFPAY ==
[2023-10-08 16:45] VITALS: BP 137/57; PULSE 66; RESP 15; TEMP 37.1; O2SAT 97
--- NOTE | 2023-10-08 16:45 | RT.EKG_ITS ---
APPROVED REPORT Exam: Resting ECG Reason for Exam: chest pain Patient Location: E HR:75 bpm ECG Measurements Heart Rate 75 AXIS RI 160 P 56 QRSd 92 QRS -49 QT 389 T 71 QTc 436 Conclusion Sinus rhythm...normal P axis, V-rate 60- 99 Left anterior fascicular block...axis(240,-40), init forces inf ST elevation, consider anterior injury...ST >0.15mV, V1-V5 Physician: Does not meet criterion for STEMI, no recip depression
[2023-10-08 17:18] LABS: Abs Immature Grans 0.03 10^3/uL (0.0-0.06); Absolute Basophil Count 0.05 10^3/uL (0.0-0.2); Absolute Eosinophil Count 0.15 10^3/uL (0.0-0.7); Absolute Lymphocyte Count 1.95 10^3/uL (1.2-3.4); Absolute Monocyte Count 0.66 10^3/uL (0.1-0.8); Absolute Neutrophil Count 4.68 10^3/uL (1.2-6.7); Basophils % 0.7 %; HGB 15.5 g/dL (13.5-17.5); Immature Grans % 0.4 %; Lymphocytes % 25.9 %; MCH 31.2 pg (27.0-33.0); MCHC 34.4 % (32.0-36.0); MCV 91 fL (80-95); MPV 9.3 fL (8.0-11.0); Monocytes % 8.8 %; Neutrophils % 62.2 %; Platelet Count 289 10^3/uL (130-400); RBC 4.97 10^6/uL (4.36-5.78); RDW-SD 42.7 fL; WBC 7.52 10^3/uL (4.4-10.8)
--- NOTE | 2023-10-08 17:30 | DI.RAD_ITS ---
Exam(s) XR CHEST 2V PA LATERAL EXAM: XR CHEST 2V PA LATERAL CLINICAL HISTORY: sternal fracture TECHNIQUE: 2D digital imaging was performed of the chest. Two images were obtained. PA and lateral views were obtained. COMPARISON: CR XR STERNUM from 10/08/2023 FINDINGS: MEDIASTINUM: Normal. HEART: Normal. PULMONARY VASCULATURE: Normal. LUNGS: Clear. PLEURAL SPACE: No pleural effusion or pneumothorax. BONE:Within normal limits for the patient's age. There is again seen a mildly displaced fracture of the upper sternum. There are old vertebral plasty in the T5, T6 and T7 vertebral bodies. OTHER FINDINGS:Normal. IMPRESSION: 1. No acute pulmonary findings. 2. There is again seen a mildly displaced sternal fracture. DATA REPOSITORY: RADIATION DOSE DELIVERED:
[2023-10-08 17:34] LABS: ALT 39 U/L (16-63); AST 21 U/L (15-37); Albumin 3.5 g/dL (3.4-5.0); Alkaline Phosphatase 52 U/L (46-116); Anion Gap 8.5 mmol/L (3-11); BUN 9 mg/dL (7-18); Bilirubin, Total 0.61 mg/dL (0.2-1.0); CO2 27.5 mmol/L (21.0-32.0); Calcium 8.7 mg/dL (8.5-10.1); Chloride 104 mmol/L (98-107); Estimated GFR 80.47 (mL/min/1.73m2); Glucose 122 mg/dL (74-106); Magnesium 1.9 mg/dL (1.8-2.4); Potassium 3.6 mmol/L (3.5-5.1); Sodium 140 mmol/L (136-145); Total Protein 6.8 g/dL (6.4-8.2); Troponin I < 50 ng/L (< or =60)
[2023-10-08 20:29] VITALS: RESP 18
--- NOTE | 2023-10-08 21:56 | ED.GENADUL_ITS ---
Discharge Plan Disposition Patient Disposition: Home Condition: Stable Discharge Details Clinical Impression: Sternal fracture Primary Care Provider: Celia Saha ED Provider: Zenaida Flores Home Meds and New Rx's Prescriptions: Continued cholecalciferol (vitamin D3) 25 mcg (1,000 unit) capsule 1,000 unit PO DAILY calcium carbonate [Tums] 200 mg calcium (500 mg) tablet,chewable 200 mg PO DAILY diphth,pertus(acell),tetanus 2.5-8-5 Lf-mcg-Lf/0.5mL syringe 0.5 ml IM ONCE Qty: 0.5 0RF Rx Instructions: as a single dose aspirin 81 mg tablet,delayed release (DR/EC) 81 mg PO DAILY triamcinolone acetonide 0.5 % cream 1 applic TP BID PRN ezetimibe 10 mg tablet 10 mg PO DAILY Qty: 90 4RF rosuvastatin 40 mg tablet 40 mg PO DAILY Qty: 90 5RF multivitamin Tablet 1 tab PO DAILY ibuprofen 200 mg capsule 200 mg PO DAILY PRN (Reason: fever or pain) Qty: 0 0RF Rx Instructions: abstain for 5-7 days Discharge Instructions Instructions: Sternal Fracture (DC) Additional Instructions: Please refer to sternal precautions take tylenol 650 every 6 hours for pain use oxycodone sparingly call [phone] to schedule an appt with thoracic surgery at [facility] for next week return earlier for worsening pain, shortness of breath, or should any new concerns arise walking is recommended Referrals: Celia Saha MD, [place] [Primary Care Provider] - 3 days HPI General Date/Time Provider Initiated Documentation: 10/08/23 16:59 . HPI Narrative: 73-year-old male presents at the request of his primary care physician after an outpatient sternal x-ray shows evidence of fracture. Patient states he was doing a head stand on an inversion table chest pain and felt a pop in his chest. Has had pain since that time. States the pain is exacerbated by deep breathing and position change. Event occurred 3 days prior to arrival. Denies any shortness of breath or fever. Denies any direct trauma to the site. Related Data Home Medications Medication Instructions Recorded Confirmed multivitamin 1 tab PO DAILY 01/03/18 10/08/23 ibuprofen 200 mg capsule 200 mg PO DAILY PRN fever or pain 01/04/18 10/08/23 #0 caps aspirin 81 mg tablet,delayed 81 mg PO DAILY 11/24/20 10/08/23 release calcium carbonate (Tums) 200 mg PO DAILY 07/20/21 10/08/23 triamcinolone acetonide 0.5 % 1 applic topical BID PRN 04/02/22 10/08/23 topical cream ezetimibe 10 mg tablet 10 mg PO DAILY #90 tabs 02/12/23 10/08/23 rosuvastatin 40 mg tablet 40 mg PO DAILY #90 tabs 02/19/23 10/08/23 cholecalciferol (vitamin D3) 25 1,000 unit PO DAILY 03/05/23 10/08/23 mcg (1,000 unit) capsule diphth,pertus(acell),tetanus 2.5 0.5 ml IM ONCE #0.5 mL 03/05/23 10/08/23 Lf unit-8 mcg-5 Lf/0.5mL IM syringe Previous Rx's Medication Instructions Recorded ibuprofen 200 mg capsule 200 mg PO DAILY PRN fever or pain 01/04/18 #0 caps ezetimibe 10 mg tablet 10 mg PO DAILY #90 tabs 02/12/23 rosuvastatin 40 mg tablet 40 mg PO DAILY #90 tabs 02/19/23 diphth,pertus(acell),tetanus 2.5 0.5 ml IM ONCE #0.5 mL 03/05/23 Lf unit-8 mcg-5 Lf/0.5mL IM syringe Allergies Allergy/AdvReac Type Severity Reaction Status Date / Time simvastatin AdvReac Unknown MYALGIAS Verified 10/08/23 11:33 General Stated Complaint: Chest Pain ANGIE: 3 Exam Narrative Exam Narrative: 73-year-old male in no acute distress, no respiratory distress, no visible signs of head trauma, lungs clear to auscultation, no chest wall movement but tenderness midsternal region on palpation, no ecchymosis, no abdominal tenderness, cardiac rate rhythm regular, distal pulses intact all 4 extremities, no cross this chest wall. Course Vital Signs Vital signs: Vital Signs Temperature 37.1 C 10/08/23 16:45 Pulse 66 10/08/23 16:45 Respiratory Rate 15 10/08/23 16:45 Blood Pressure 137/57 L 10/08/23 16:45 Pulse Oximetry 97 10/08/23 16:45 Temperature 37.1 C 10/08/23 16:45 Temperature Source Temporal Artery Scan 10/08/23 16:45 Pulse 66 10/08/23 16:45 Respiratory Rate 18 10/08/23 20:29 Respiratory Effort Normal 10/08/23 20:29 Respiratory Depth Normal 10/08/23 20:29 Respiratory Pattern Normal 10/08/23 20:29 Blood Pressure 137/57 L 10/08/23 16:45 Blood Pressure Position Sitting 10/08/23 16:45 Pulse Oximetry 97 10/08/23 16:45 Oxygen Delivery Method Room Air 10/08/23 16:45 Oxygen Flow Rate 0 10/08/23 16:45 Pain Level 4 10/08/23 16:45 Comment pain goes to an 8 when he moves 10/08/23 16:45 Lab/Test Results Lab/Test Results: Laboratory Tests Range/Units 10/08/23 10/08/23 17:09 19:50 WBC (4.4-10.8) 10^3/uL 7.52 RBC (4.36-5.78) 10^6/uL 4.97 Hgb (13.5-17.5) g/dL 15.5 Hct (40.0-50.0) % 45.0 MCV (80-95) fL 91 MCH (27.0-33.0) pg 31.2 MCHC (32.0-36.0) % 34.4 RDW (11.8-14.1) % 13.0 Plt Count (130-400) 10^3/uL 289 MPV (8.0-11.0) fL 9.3 Immature Gran % % 0.4 Neutrophils % % 62.2 Lymphocytes % % 25.9 Monocytes % % 8.8 Eosinophils % % 2.0 Basophils % % 0.7 Nucleated RBC % (0.0-0.3) % 0.0 Absolute Neutrophils (1.2-6.7) 10^3/uL 4.68 Absolute Lymphocytes (1.2-3.4) 10^3/uL 1.95 Absolute Monocytes (0.1-0.8) 10^3/uL 0.66 Absolute Eosinophils (0.0-0.7) 10^3/uL 0.15 Absolute Basophils (0.0-0.2) 10^3/uL 0.05 Sodium (136-145) mmol/L 140 Potassium (3.5-5.1) mmol/L 3.6 Chloride (98-107) mmol/L 104 Carbon Dioxide (21.0-32.0) mmol/L 27.5 Anion Gap (3-11) mmol/L 8.5 BUN (7-18) mg/dL 9 Creatinine (0.70-1.30) mg/dL 1.0 Est GFR (CKD-EPI 2020) (mL/min/1.73m2) 80.47 Glucose (74-106) mg/dL 122 H Calcium (8.5-10.1) mg/dL 8.7 Magnesium (1.8-2.4) mg/dL 1.9 Total Bilirubin (0.2-1.0) mg/dL 0.61 AST (15-37) U/L 21 ALT (16-63) U/L 39 Alkaline Phosphatase (46-116) U/L 52 Troponin I (< or =60) ng/L < 50 Cancelled Total Protein (6.4-8.2) g/dL 6.8 Albumin (3.4-5.0) g/dL 3.5 Medical Decision Making 81-year-old male presenting with past medical history significant for suspected sternal fracture. Patient performing headstands on an inversion table and felt a pop. No direct trauma to the area. X-ray shows sternal fracture, chest x-ray was ordered which does not show evidence of acute abnormality. In this traumatic setting CT would be preferred, however we do not CT capabilities and I think it is reasonable to rely on x-ray at this time for this patient's evaluation. I have low suspicion that there is pulmonary or cardiac contusion. Troponin and EKG within normal limits. Diagnostic labs do not show evidence of acute abnormality. Given patient's sternal fracture I discussed the case with thoracic surgery at [facility], Dr. Fuller who reviewed films and actually states there is 50% displacement and overlap of the sternal bones. His recommendation is that patient be followed up in clinic as he may benefit from surgery secondary to risk of worsening kyphosis without. Patient is aware that he is being treated and has osteoporosis and will follow-up with his doctor regarding this. Patient is in no acute distress, he was given 4 tablets of oxycodone and we reviewed sternal precautions at the request of thoracic surgeon. He will follow-up with thoracic surgery, number was supplied that patient may call to schedule appointment tomorrow. Return precautions reviewed and patient expressed understanding Quality:[facility] Health Related Social Needs: No Data to Display [facility] All Active Problems (Updated 10/08/23 @ 20:18 by BARBI Carver) Sternal fracture (Acute) Sternal pain (Acute) Hyperplastic colon polyp (Acute) Tubular adenoma of colon (Acute) 07/202107/18/17; [facility] Non-cardiac chest pain (Acute) Medical History Benign paroxysmal positional vertigo (11/20/16) BPH (benign prostatic hyperplasia) Compression fracture (03/30/14) spontaneous T5-7, likely osteoporosis Compression fracture of body of thoracic vertebra (08/01/16) t5-7. 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
== END 2023-10-08 20:32 | disposition home or self-care (01) ==
PROVIDERS: Emergency Provider Physician Assistant; PCP Family Medicine
DX: S22.20XA Unspecified fracture of sternum, initial encounter for closed fracture (principal); R07.89 Other chest pain; X50.1XXA Overexertion from prolonged static or awkward postures, initial encounter; Y93.A1 Activity, exercise machines primarily for cardiorespiratory conditioning
CPT/HCPCS: 80053; 93005; 99284; 71046; 71120; 83735; 84484; 85025; 93010; 99283

== ENCOUNTER 2023-10-14 03:54 | Outpatient (CLI) | payer MEDICARE, SELFPAY ==
[2023-10-14 08:24] LABS: HCT 45.8 % (40.0-50.0); HGB 15.7 g/dL (13.5-17.5); MCH 31.4 pg (27.0-33.0); MCHC 34.3 % (32.0-36.0); MCV 92 fL (80-95); MPV 9.2 fL (8.0-11.0); Platelet Count 323 10^3/uL (130-400); RDW 13.4 % (11.8-14.1); RDW-SD 45.1 fL; WBC 5.83 10^3/uL (4.4-10.8)
[2023-10-14 09:04] LABS: ALT 36 U/L (16-63); AST 20 U/L (15-37); Albumin 3.5 g/dL (3.4-5.0); Alkaline Phosphatase 50 U/L (46-116); Anion Gap 6.7 mmol/L (3-11); BUN 14 mg/dL (7-18); Bilirubin, Total 0.59 mg/dL (0.2-1.0); CO2 30.3 mmol/L (21.0-32.0); Calcium 8.8 mg/dL (8.5-10.1); Calculated LDL 55 mg/dL (<100); Chloride 106 mmol/L (98-107); Cholesterol 152 mg/dL (<200); Estimated GFR 80.47 (mL/min/1.73m2); Glucose 110 mg/dL (74-106); HDL Cholesterol 90 mg/dL (40-60); Potassium 4.1 mmol/L (3.5-5.1); Sodium 143 mmol/L (136-145); TSH (W/Ref FT4) 1.85 uIU/mL (0.36-3.74); Total Protein 6.7 g/dL (6.4-8.2); Triglyceride 37 mg/dL (<150); Vitamin D 25 Total 49.8 ng/mL (30-100)
[2023-10-14 09:18] LABS: PHOSPHORUS 2.9 mg/dL (2.6-4.7)
[2023-10-14 17:49] LABS: PSA, Diagnostic 2.6 ng/mL (<=6.5); Parathyroid Hormone,Intact 63 pg/mL (19-88)
[2023-10-24 16:49] LABS: Testosterone, Bioavailable 63 ng/dL (40-168); Testosterone, Free 11.3 ng/dL (3.28-12.2); Testosterone, Total 577 ng/dL (240-950)
== END 2023-10-14 03:55 | disposition home or self-care (01) ==
PROVIDERS: PCP Family Medicine; Visit Provider Family Medicine
DX: M81.0 Age-related osteoporosis without current pathological fracture (principal); N18.9 Chronic kidney disease, unspecified; N40.0 Benign prostatic hyperplasia without lower urinary tract symptoms; E78.5 Hyperlipidemia, unspecified
CPT/HCPCS: 36415; 80053; 80061; 82306; 84402; 84403; 84410; 85027; 83970; 84100; 84153; 84443

== ENCOUNTER 2023-10-14 18:17 | Outpatient (REF) | payer MEDICARE, SELFPAY ==
[2023-10-15 09:20] LABS: Magnesium Random Urine 10.9 mg/dL (See Note); Timed Urine Volume 1000 mL
[2023-10-15 09:28] LABS: Calcium Urine 17.3 mg/dL (See Note); Calcium Urine 24 hr 173 mg/24hr (100-300); Timed Urine Volume 1000 mL
== END 2023-10-14 18:18 | disposition home or self-care (01) ==
LOC: LBN 18:17
PROVIDERS: PCP Family Medicine; Visit Provider Family Medicine
DX: M81.0 Age-related osteoporosis without current pathological fracture (principal)
CPT/HCPCS: 83735; 81050; 82340

== ENCOUNTER → 2023-10-21 01:21 | Outpatient (CLI) | payer MEDICARE, SELFPAY ==
--- NOTE | 2023-10-21 07:00 | DI.DEXA_ITS ---
Exam(s) XR DEXA BONE DENSITY W/WO BARB EXAM: XR DEXA BONE DENSITY W/WO BARB CLINICAL HISTORY: multiple fx,osteoporosis, m81.0 TECHNIQUE: COMPARISON: CR XR DEXA BONE DENSITY W/WO BARB from 12/30/2020 FINDINGS: Lateral Spine Image: Unremarkable. No compression deformities identified. Old compression deformitie s and vertebroplasty is seen in the T5, T6 and T7. Left hip: Total T-Score: 0.2. This is unchanged compared to the prior examination. Total Z-Score: 0.9 T- and Z-scores: There is no evidence of osteoporosis. Lumbar Spine: Total T-Score: -2.0. This compares to -1.8 on the prior examination. Total Z-Score: -1.0 T- and Z-scores: Findings are consistent with osteopenia. There is osteoporosis in the L1 vertebral body with a T-score of -2.6. This compares to -1.8 on the prior examination. IMPRESSION: Osteoporosis in the L1 vertebral body.
== END ==
PROVIDERS: PCP Family Medicine; Visit Provider Family Medicine
DX: M81.0 Age-related osteoporosis without current pathological fracture (principal)
CPT/HCPCS: 77080

== ENCOUNTER → 2023-10-29 12:56 | Outpatient (BNVA) | payer MEDICARE, SELFPAY | PROVIDERS: PCP Family Medicine; Referring Provider Family Medicine; Visit Provider Internal Medicine Cardiovascular Disease | DX: E78.5 Hyperlipidemia, unspecified (principal) | CPT/HCPCS: 99213 ==

== ENCOUNTER 2023-12-24 02:28 | Outpatient (CLI) | payer MEDICARE, SELFPAY ==
[2023-12-24 08:22] LABS: Abs Immature Grans 0.01 10^3/uL (0.0-0.06); Absolute Basophil Count 0.07 10^3/uL (0.0-0.2); Absolute Eosinophil Count 0.25 10^3/uL (0.0-0.7); Absolute Lymphocyte Count 2.18 10^3/uL (1.2-3.4); Absolute Monocyte Count 0.47 10^3/uL (0.1-0.8); Absolute Neutrophil Count 2.62 10^3/uL (1.2-6.7); Basophils % 1.3 %; Eosinophils % 4.5 %; HCT 45.2 % (40.0-50.0); HGB 15.3 g/dL (13.5-17.5); Immature Grans % 0.2 %; Lymphocytes % 38.9 %; MCHC 33.8 % (32.0-36.0); MCV 92 fL (80-95); MPV 9.4 fL (8.0-11.0); Monocytes % 8.4 %; Neutrophils % 46.7 %; Platelet Count 315 10^3/uL (130-400); RBC 4.94 10^6/uL (4.36-5.78); RDW 14.5 % (11.8-14.1); RDW-SD 48.8 fL
[2023-12-24 08:55] LABS: Albumin 3.7 g/dL (3.4-5.0); Calcium 8.9 mg/dL (8.5-10.1); Magnesium 2.1 mg/dL (1.8-2.4); Vitamin D 25 Total 50.7 ng/mL (30-100)
[2023-12-24 09:12] LABS: PHOSPHORUS 3.3 mg/dL (2.6-4.7)
[2023-12-24 18:05] LABS: Parathyroid Hormone,Intact 60 pg/mL (19-88)
[2023-12-26 10:06] LABS: Beta-CrossLaps (B-CTx) 320 pg/mL
[2023-12-31 16:22] LABS: Procollagen I IntactN-Terminal 36 mcg/L (22-87)
== END 2023-12-24 02:29 | disposition home or self-care (01) ==
PROVIDERS: PCP Family Medicine; Visit Provider Internal Medicine
DX: M81.0 Age-related osteoporosis without current pathological fracture (principal); T14.8XXA Other injury of unspecified body region, initial encounter
CPT/HCPCS: 36415; 82306; 82523; 83519; 82040; 82310; 83735; 83970; 84080; 84100; 85025

== ENCOUNTER 2024-03-31 01:58 | Outpatient (RCR) | payer MEDICARE, OTHER, SELFPAY ==
[2024-03-03] MEDS: Romosozumab-AQQG 210 MG/2.34 ML SYRINGE SC (12:17)
[2024-03-31] MEDS: Romosozumab-AQQG 210 MG/2.34 ML SYRINGE SC (11:47)
== END 2024-03-31 23:59 | disposition home or self-care (01) ==
LOC: INF 01:58
PROVIDERS: PCP Family Medicine; Visit Provider Family Medicine
DX: M81.0 Age-related osteoporosis without current pathological fracture (principal)
CPT/HCPCS: 96372; J3111

== ENCOUNTER 2024-05-05 00:40 | Outpatient (RCR) | payer MEDICARE, OTHER, SELFPAY ==
[2024-05-05] MEDS: Romosozumab-AQQG 210 MG/2.34 ML SYRINGE SC (12:06)
== END 2024-05-29 23:59 | disposition home or self-care (01) ==
LOC: INF 00:40
PROVIDERS: PCP Family Medicine; Visit Provider Family Medicine
DX: M81.0 Age-related osteoporosis without current pathological fracture (principal)
CPT/HCPCS: 96372; J3111

== ENCOUNTER 2024-05-05 01:10 | Outpatient (CLI) | payer MEDICARE, OTHER, SELFPAY ==
[2024-05-05 13:45] LABS: ALT 23 U/L (16-63); AST 17 U/L (15-37); Albumin 3.7 g/dL (3.4-5.0); Alkaline Phosphatase 55 U/L (46-116); Anion Gap 8.1 mmol/L (3-11); BUN 14 mg/dL (7-18); Bilirubin, Total 0.82 mg/dL (0.2-1.0); CO2 27.9 mmol/L (21.0-32.0); Calcium 8.9 mg/dL (8.5-10.1); Calculated LDL 71 mg/dL (<100); Chloride 105 mmol/L (98-107); Cholesterol 192 mg/dL (<200); Estimated GFR 79.97 (mL/min/1.73m2); Glucose 100 mg/dL (74-106); HDL Cholesterol 110 mg/dL (40-60); Sodium 141 mmol/L (136-145); Total Protein 7.1 g/dL (6.4-8.2); Triglyceride 57 mg/dL (<150); Vitamin B12 366 pg/mL (193-986)
[2024-05-05 22:39] LABS: PSA, Diagnostic 2.7 ng/mL (<=6.5)
== END 2024-05-05 01:11 | disposition home or self-care (01) ==
PROVIDERS: PCP Family Medicine; Visit Provider Family Medicine
DX: I10 Essential (primary) hypertension (principal); E53.8 Deficiency of other specified B group vitamins; N40.0 Benign prostatic hyperplasia without lower urinary tract symptoms
CPT/HCPCS: 36415; 80053; 80061; 96372; 82607; 84153; J3111

== ENCOUNTER 2024-05-06 00:20 | Outpatient (CLI) | payer MEDICARE, OTHER, SELFPAY ==
--- NOTE | 2024-05-06 06:15 | DI.CTLCSR_ITS ---
Exam(s) CT CHEST LUNG CANCER SCREEN EXAM: CT CHEST LUNG CANCER SCREEN CLINICAL HISTORY: Screening for lung cancer,former tobacco use,z87.891 TECHNIQUE: Imaging Protocol: Axial computed tomography images with coronal and sagittal reformatted images were created and reviewed. Low dose screening protocol. COMPARISON: CT CT CHEST LUNG CANCER SCREEN from 03/18/2023 CR XR CHEST 2V PA LATERAL from 10/08/2023 FINDINGS: Tracheobronchial tree: No bronchiectasis or mucus plugging. Mediastinum and Flory: No dominant adenopathy or fluid collection. Pulmonary parenchyma: No consolidation or dominant measurable mass. Mild emphysematous changes are pr esent in the upper lobes. Minimal upper lobe interstitial changes. Lung Nodules: None. Pleura: No effusion. No pneumothorax. Heart: The heart is not dilated. Mild coronary artery calcifications are seen. No pericardial effusio n. Aorta: Thoracic aorta non-dilated. Upper abdomen: Unremarkable. Bones: Fixation plate noted in sternum for sternal fracture. Stable compression fractures of T5 thro ugh T7 with vertebroplasty material. 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 Soft Tissues: Unremarkable. IMPRESSION: No suspicious pulmonary nodules. Lung RADS Cat 1 - Negative: No nodules and definitely benign nodules Lung-RADS 1.0 CATEGORIES: Category 0 - Prior chest CT exam(s) being located for comparison. Category 1 - Annual screening in 12 months. No nodules or definitely benign nodules. Category 2 - Annual screening in 12 months. Benign appearance. Nodules with low likelihood of becomin g active cancer. Category 3 - 6-month follow-up. Probably benign. Short-term follow-up suggested. Nodules with low lik elihood of becoming active cancer. Category 4A - 3-month follow-up and CT/PET if >8 mm in size. Suspicious finding. Findings which requi re additional testing. Category 4B - Findings which require additional testing and tissue sampling. Category 4X - Category 3 or 4 nodules with additional features or imaging findings that increases the suspicion of malignancy. Modifier S- Potentially clinically significant findings (non lung cancer) RADIATION DOSE DELIVERED: !Error Total DLP DATA REPOSITORY: All CT scans at this facility are submitted to the National Radiology Data Registry (NRDR) Dose Index Registry (DIR) with the [employer] (ACR). RADIATION OPTIMIZATION: All CT scans at this facility use at least one of these dose optimization te mynor: automated exposure control; mA and/or kV adjustment per patient size (includes targeted exa ms where dose is matched to clinical indication); or iterative reconstruction.
== END 2024-05-06 00:40 ==
LOC: DI 00:20
PROVIDERS: PCP Family Medicine; Visit Provider Family Medicine
DX: Z87.891 Personal history of nicotine dependence (principal); Z12.2 Encounter for screening for malignant neoplasm of respiratory organs
CPT/HCPCS: 71271

== ENCOUNTER 2024-06-03 02:47 | Outpatient (RCR) | payer MEDICARE, OTHER, SELFPAY ==
[2024-06-03] MEDS: Romosozumab-AQQG 210 MG/2.34 ML SYRINGE SC (09:10)
== END 2024-06-29 23:59 | disposition home or self-care (01) ==
LOC: INF 02:47
PROVIDERS: PCP Family Medicine; Visit Provider Family Medicine
DX: M81.0 Age-related osteoporosis without current pathological fracture (principal)
CPT/HCPCS: 96372; J3111

== ENCOUNTER 2024-07-01 02:38 | Outpatient (RCR) | payer MEDICARE, OTHER, SELFPAY ==
[2024-07-01] MEDS: Romosozumab-AQQG 210 MG/2.34 ML SYRINGE SC (09:57)
== END 2024-07-29 23:59 | disposition home or self-care (01) ==
LOC: INF 02:38
PROVIDERS: PCP Family Medicine; Visit Provider Family Medicine
DX: M81.0 Age-related osteoporosis without current pathological fracture (principal)
CPT/HCPCS: 96372; J3111

== ENCOUNTER 2024-08-05 00:34 | Outpatient (CLI) | payer MEDICARE, OTHER, SELFPAY ==
--- NOTE | 2024-08-05 06:45 | DI.RAD_ITS ---
Exam(s) XR HIP PELVIS ADULT BL EXAM: XR HIP PELVIS ADULT BL CLINICAL HISTORY: hip pain, leg pain,m25.559,m79.606. TECHNIQUE: 2D digital imaging was performed. Three views. COMPARISON: CT CTA THORAX/ABDOMEN/PELVIS from 02/11/2014 FINDINGS: BONES: No acute fracture is present. No bony destructive lesion is seen. Benign-appearing lesion in t he right femoral neck has the appearance of an enchondroma. JOINTS: No dislocation present. Hip joint spaces are maintained. No significant periarticular spur ring. SI joints and pubic symphysis are unremarkable. SOFT TISSUE: Normal. IMPRESSION: Unremarkable radiographs of the bilateral hips. DATA REPOSITORY: RADIATION DOSE DELIVERED:
--- NOTE | 2024-08-05 06:45 | DI.RAD_ITS ---
Exam(s) XR LUMBAR SPINE COMPLETE EXAM: XR LUMBAR SPINE COMPLETE CLINICAL HISTORY: lbp with r leg radiation,m54.50,m79.606. TECHNIQUE: 2D digital imaging was performed. Five views. COMPARISON: CT CTA THORAX/ABDOMEN/PELVIS from 02/11/2014 CR XR DEXA BONE DENSITY W/WO BARB from 10/21/2023 FINDINGS: BONES: No fracture or destructive lesion. There is partial congenital fusion between T 9 and T10. Th e vertebral body heights are maintained. Mild facet hypertrophy identified at L5-S1. DISKS: Intervertebral disc spaces are maintained. ALIGNMENT: Lumbar spinal alignment is within normal limits. SOFT TISSUE: Normal the aorta is calcified without evidence of aneurysm. IMPRESSION: Mild facet joint degenerative changes at L5-S1. The disc spaces are maintained. DATA REPOSITORY: RADIATION DOSE DELIVERED:
--- NOTE | 2024-08-05 06:45 | DI.RAD_ITS ---
Exam(s) XR SHOULDER LT COMPLETE 2+V EXAM: XR SHOULDER LT COMPLETE 2+V CLINICAL HISTORY: l shoulder pain,m25.512. TECHNIQUE: 2D digital imaging was performed. Three views. COMPARISON: CR XR CHEST 2V PA LATERAL from 10/08/2023 FINDINGS: BONES: No acute fracture is present. No bony destructive lesion is seen. Vertebroplasty noted in the upper thoracic spine. Fixation plates noted in sternum. JOINTS: No dislocation present. The glenohumeral joint space is maintained.. The AC joint is intact . There are no significant degenerative changes. SOFT TISSUE: Normal. IMPRESSION: Unremarkable radiographs of the left shoulder. DATA REPOSITORY: RADIATION DOSE DELIVERED:
== END 2024-08-05 00:54 ==
LOC: DI 00:34
PROVIDERS: PCP Family Medicine; Visit Provider Family Medicine
DX: M51.362 Other intervertebral disc degeneration, lumbar region with discogenic back pain and lower extremity pain (principal); M79.604 Pain in right leg; M25.512 Pain in left shoulder; M79.605 Pain in left leg
CPT/HCPCS: 73521; 96372; 72110; 73030; J3111

== ENCOUNTER 2024-08-05 01:30 | Outpatient (RCR) | payer MEDICARE, OTHER, SELFPAY ==
[2024-08-05] MEDS: Romosozumab-AQQG 210 MG/2.34 ML SYRINGE SC (09:54)
== END 2024-08-29 23:59 | disposition home or self-care (01) ==
LOC: INF 01:30
PROVIDERS: PCP Family Medicine; Visit Provider Family Medicine
DX: M81.0 Age-related osteoporosis without current pathological fracture (principal)
CPT/HCPCS: 96372; J3111

== ENCOUNTER 2024-09-02 02:00 | Outpatient (RCR) | payer MEDICARE, OTHER, SELFPAY ==
[2024-09-02] MEDS: Romosozumab-AQQG 210 MG/2.34 ML SYRINGE SC (11:42)
== END 2024-09-28 23:59 | disposition home or self-care (01) ==
LOC: INF 02:00
PROVIDERS: PCP Family Medicine; Visit Provider Family Medicine
DX: M81.0 Age-related osteoporosis without current pathological fracture (principal)
CPT/HCPCS: 96372; J3111

== ENCOUNTER 2024-10-05 03:26 | Outpatient (RCR) | payer MEDICARE, OTHER, SELFPAY ==
[2024-10-05] MEDS: Romosozumab-AQQG 210 MG/2.34 ML SYRINGE SC (10:19)
== END 2024-10-29 23:59 | disposition home or self-care (01) ==
LOC: INF 03:26
PROVIDERS: PCP Family Medicine; Visit Provider Family Medicine
DX: M81.0 Age-related osteoporosis without current pathological fracture (principal)
CPT/HCPCS: 96372; J3111

== ENCOUNTER 2024-11-02 02:12 | Outpatient (RCR) | payer MEDICARE, OTHER, SELFPAY ==
[2024-11-02] MEDS: Romosozumab-AQQG 210 MG/2.34 ML SYRINGE SC (09:48)
== END 2024-11-29 23:59 | disposition home or self-care (01) ==
LOC: INF 02:12
PROVIDERS: PCP Family Medicine; Visit Provider Family Medicine
DX: M81.0 Age-related osteoporosis without current pathological fracture (principal)
CPT/HCPCS: 96372; J3111

== ENCOUNTER 2024-12-07 03:43 | Outpatient (RCR) | payer MEDICARE, OTHER, SELFPAY ==
[2024-12-07] MEDS: Romosozumab-AQQG 210 MG/2.34 ML SYRINGE SC (09:52)
== END 2024-12-29 23:59 | disposition home or self-care (01) ==
LOC: INF 03:43
PROVIDERS: PCP Family Medicine; Visit Provider Family Medicine
DX: M81.0 Age-related osteoporosis without current pathological fracture (principal)
CPT/HCPCS: 96372; J3111

== ENCOUNTER 2025-01-06 03:27 | Outpatient (RCR) | payer MEDICARE, OTHER, SELFPAY ==
[2025-01-06] MEDS: Romosozumab-AQQG 210 MG/2.34 ML SYRINGE SC (12:21)
== END 2025-01-29 23:59 | disposition home or self-care (01) ==
LOC: INF 03:27
PROVIDERS: PCP Family Medicine; Visit Provider Family Medicine
DX: M81.0 Age-related osteoporosis without current pathological fracture (principal)
CPT/HCPCS: 96372; J3111

== ENCOUNTER 2025-01-20 01:43 | Outpatient (CLI) | payer MEDICARE, OTHER, SELFPAY ==
[2025-01-20 11:52] LABS: Anion Gap 9.3 mmol/L (3-11); BUN 16 mg/dL (7-18); CO2 28.7 mmol/L (21.0-32.0); Calcium 9.1 mg/dL (8.5-10.1); Chloride 102 mmol/L (98-107); Estimated GFR 90.18 (mL/min/1.73m2); Glucose 99 mg/dL (74-106); Potassium 3.9 mmol/L (3.5-5.1); Sodium 140 mmol/L (136-145)
[2025-01-20 12:37] LABS: Vitamin B12 849 pg/mL (193-986)
== END 2025-01-20 01:44 | disposition home or self-care (01) ==
PROVIDERS: Internal Medicine; PCP Family Medicine; Visit Provider Family Medicine
DX: E53.8 Deficiency of other specified B group vitamins (principal); M81.0 Age-related osteoporosis without current pathological fracture
CPT/HCPCS: 36415; 80048; 82607

== ENCOUNTER → 2025-02-04 01:52 | Outpatient (CLI) | payer MEDICARE, OTHER, SELFPAY ==
--- NOTE | 2025-02-04 14:48 | DI.DEXA_ITS ---
Exam(s) XR DEXA BONE DENSITY W/WO BARB EXAM: XR DEXA BONE DENSITY W/WO BARB CLINICAL HISTORY: OSTEOPOROSIS,M81.0 TECHNIQUE: COMPARISON: CR XR DEXA BONE DENSITY W/WO BARB from 10/21/2023 FINDINGS: Lateral Spine Image: Unremarkable. No compression deformities identified. There is again seen vertebral plasty at T5, T6 and T7. Left hip: Total T-Score: 0.3. This compares to 0.2 on the prior examination. Total Z-Score: 1.0 T- and Z-scores: There is no evidence of osteoporosis. Lumbar Spine: Total T-Score: -0.5. This compares to -2.0 on the prior examination. Total Z-Score: 0.5 T- and Z-scores: There is no evidence of osteoporosis. IMPRESSION: No evidence of osteoporosis.
== END ==
PROVIDERS: PCP Family Medicine; Visit Provider Internal Medicine
DX: M81.0 Age-related osteoporosis without current pathological fracture (principal)
CPT/HCPCS: 77080